=== PATIENT | female | born 1950 | race Caucasian/White ===

== ENCOUNTER 2016-09-13 08:47 | Observation (INO) | payer MEDICARE, OTHER ==
[2016-09-13] MEDS ORDERED: PROMETHAZINE HCL 12.5 MG in DEXTROSE 5 % IN WATER 50 ML IV ONE ×2 (09:04)
[2016-09-13 09:33] LABS: Hematocrit 47.7 % (37.0-47.0); Hemoglobin 15.6 gm/dL (12.5-16.0); Mean Cell Volume 92.4 fl (78-100); Mean Corpuscular Hemoglobin 30.2 pg (27-31); Mean Corpuscular Hgb Conc 32.7 g/dl (32-36); Mean Platelet Volume 10.6 fl (6.0-9.5); Neutrophil # 6.2 K/mm3 (1.3-6.0); Neutrophil % 67.2 % (42-75.0); Platelet Count 327 K/mm3 (150-450); Red Blood Count 5.16 M/mm3 (4.2-5.4); Red Cell Distribution Width 13.2 % (11.5-14.0); White Blood Count 9.3 K/mm3 (4.0-10.5)
[2016-09-13 10:15] LABS: ALT 19 U/L (19-67); AST 16 U/L (0-48); Albumin * 3.7 gm/dl (3.4-5.0); Alkaline Phosphatase * 132 U/L (50-170); Anion Gap 12.9 mmol/L (6.8-13.8); BUN/Creatinine Ratio 9.8 (9.0-21.6); Bilirubin, Total 0.2 mg/dL (0.0-1.1); Blood Urea Nitrogen 8 mg/dL (3-23); Ca. Corrected For Albumin 9.6 mg/dL (8.4-10.2); Calcium * 9.7 mg/dL (7.9-10.9); Chloride 103 mmol/L (97-106); Glucose * 96 mg/dL (70-110); Potassium 3.9 mmol/L (3.4-4.6); Sodium 139 mmol/L (132-142); Total Protein 7.7 gm/dL (6.2-8.2); Troponin I Less than 0.017 ng/ml (0.00-0.10)
[2016-09-13 10:29] LABS: Urine Bilirubin Negative (NEGATIVE); Urine Ketone Negative (NEGATIVE); Urine Protein Negative (NEGATIVE); Urine Urobilinogen Normal (NORMAL)
[2016-09-13 10:38] LABS: Urine Appearance Clear; Urine Bacteria 2+; Urine Blood 10 /ul (NEGATIVE); Urine Color Yellow; Urine Nitrite Positive (NEGATIVE); Urine RBC 0-5 /hpf (0-5)
--- NOTE | 2016-09-13 12:26 | ERNOTE ---
Dizziness ER Record Date of Service: 09/13/16 Presenting Symptoms: dizziness Time Seen by Provider: 09/13/16 08:57 Source: patient Exam Limitations: no limitations Immunizations: IMMUNIZATION HX Immunizations Up to Date Yes Allergies/Adverse Reactions: Allergies Allergy/AdvReac Type Severity Reaction Status Date / Time sulfamethoxazole AdvReac Verified 09/13/16 09:03 [From Bactrim] trimethoprim [From Bactrim] AdvReac Verified 09/13/16 09:03 Home Medications: HOME MEDICATIONS Metoprolol Succinate 25 mg PO DAILY 11/19/15 [Last Taken Unknown] Paroxetine HCl [Paxil] 40 mg PO DAILY 11/19/15 [Last Taken Unknown] Simvastatin [Zocor] 20 mg PO HS 11/19/15 [Last Taken Unknown] amLODIPine BESYLATE [Norvasc] 10 mg PO DAILY 11/19/15 [Last Taken Unknown] - History of Present Illness Narrative: Patient presents to the ED for an episode this morning of feeling like things were waving in front of her. She has been fine with awakening then began to feel off balance and like things were moving or swimming in front of her. No fever. No head injury. SHe felt like she was going to pass out. She couldn/t move because this would make the Sx much worse. She nearly vomited with this. No clear vertigo but a sense of motion. She relates her Sx are improved but not gone. Has not seen anyone else for this. No JAMES. Timing and Duration: sudden onset, better Worse/persistent since:: better Noted on awakening:: No Severity: max: severe Severity: currently: mild Associated Symptoms: Present: nausea. Absent: hearing loss, ringing/roaring in ear, ear pain, vomiting, sense of confusion Sense of movement: Present: vague Decreased ability to stand/walk:: Present: off balance. Absent: weak Usually:: Present: walks w/o assistance Modifying Factors - (Improves): Reports: other - rest Modifying Factors - (Worsens): Reports: other - movement Review of Systems - Review of Systems Constitutional: Absent: fever EYE: Absent: double vision, vision changes ENT: Present: no symptoms reported Respiratory: Absent: shortness of breath Cardiology: Present: other - frequent heart burn. Absent: chest pain Gastrointestinal/Abdominal: Absent: abdominal pain Genitourinary: Absent: dysuria All Other Systems: All systems neg except as marked - Patient's Past Medical History Patient History - Medical: Anxiety, Chronic Pain Patient History - Cardiac/Respiratory: Hypertension, Hyperlipidemia Patient History - Cancer: No Hx of Cancer Patient History - Surgical Procedures: Back Surgery, , Other Patient History - Other: None - Family History Mother Family History - Medical: - Social History Living Situations: significant other Abuse History: No History of abuse Psych History: Hx of Anxiety Smoking Status: Current every day smoker Have you smoked in the past 12 months: Yes Alcohol Use: none Drug Use: none - Immunizations Immunizations Up to Date: Yes Physical Exam - Physical Exam General Appearance: Present: alert, no apparent distress Eye Exam: Normal inspection: bilateral, PERRL: bilateral, EOMI: bilateral Ears, Nose, Throat: Present: normal ENT inspection Neck: Present: normal inspection Respiratory: Present: no respiratory distress, normal breath sounds, no accessory muscle use, lungs clear Cardiovascular/Chest: Present: regular rate, rhythm Gastrointestinal/Abdominal: Present: normal bowel sounds, nontender, nondistended, soft. 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 FInver to nose wnl Skin Exam: Absent: skin rash ED Progress - Results and Orders Patient's Lab Results:: I have reviewed the patient's lab results. - Vital Signs Patient's Vital Signs:: I have reviewed the patient's vital signs. Vital Signs: Vital Signs 09/13/16 09/13/16 09/13/16 08:58 09:03 09:47 Temperature 35.6 C L Pulse Rate 82 78 69 Respiratory 15 18 Rate Blood Pressure 158/71 O2 Sat by Pulse 97 95 Oximetry 09/13/16 09/13/16 10:29 10:45 Temperature Pulse Rate 71 68 Respiratory 22 H 25 H Rate Blood Pressure 161/77 145/65 O2 Sat by Pulse 94 94 Oximetry - EKG EKG: NSR EKG read: Interp. by me EKG Comments: Rate 66. Non-specific ST/T wave changes, no STEMI - X-Ray X-Ray #1 X-Ray: chest Interpretation: Reviewed by me X-ray Comments: I reviewed official radiology report - CT/Ultrasound CT/Ultrasound Narrative: reviewed Head CT radiology report - Progress/Reassessment Chief Complaint: Dizziness Progress:: Improved Progress Note-Subjective: 09/13/16 12:24 Sx free at re-check. I discussd the case with Dr Fairchild irrigation pump installer for Neurology. NIH-0. He reviewed the Head CT and felt the patient should be admitted for stroke work-up. D/W Dr Veras for Dr Thao who will admit for MRI and stroke w/u. Patient not a tPA candidate, Sx resolved and NIH-0. Departure Clinical Impression: Lightheadedness, Abnormal head CT, UTI (urinary tract infection) - Departure Disposition: [facility] Referrals: Sunshine Thao MD [Primary Care Provider] -
[2016-09-13] MEDS ORDERED: CIPROFLOXACIN HCL 500 MG TABLET PO SCH (17:00)
--- NOTE | 2016-09-13 17:01 | HP ---
Chief Complaint - Chief Complaint Date of Service: 09/13/16 Time of Service: 17:01 Chief Complaint: Dizziness History of Present Illness: Laney is a 66 yo male that presents to the [facility] ER today with reports of dizziness. Denies vertigo or syncope. She reports she felt fine yesterday and upon awakening this morning. She got up to the bathroom and went back to lay down in bed and she became severely dizzy. She denies any recent changes to health. Episode resolved but she has had several others throughout the morning that nearly caused her to fall. Due to continued episodes she presented to the [facility] ER. Head CT was performed which showed possible evidence of CVA. Dr. Fairchild with neurology was called and recommended working up as potential acute stroke. She denies difficulty speaking or swallowing. No motor or sensory change. She does not appreciate anything that precipitates symptoms. Change in position, head turning, or movement does not seem to bother it. Denies headache, vision change, ear pain, sore throat, or any other sinus symptoms. No shortness of breath or chest pain. In the ER the UA was suspicious for UTI but she denies frequency, urgency, or dysuria. - Patient's Past Medical History Patient History - Medical: Anxiety, Chronic Pain Patient History - Cardiac/Respiratory: Hypertension, Hyperlipidemia Patient History - Cancer: No Hx of Cancer Patient History - Surgical Procedures: Back Surgery, Colonoscopy, , Tubal Ligation Patient History - Other: None - Family History Mother Family History - Medical: Family History - Cancer: Colon Father Family History - Medical: Family History - Cardiac/Respiratory: Myocardial Infarction Sister Family History - Cardiac/Respiratory: Hypertension Grandmother-Paternal Family History - Cardiac/Respiratory: Myocardial Infarction Grandfather-Paternal Family History - Cardiac/Respiratory: Myocardial Infarction - Social History Living Situations: significant other Abuse History: No History of abuse Psych History: Hx of Anxiety Smoking Status: Current every day smoker Have you smoked in the past 12 months: Yes Alcohol Use: none Drug Use: none - Immunizations Immunizations Up to Date: Yes Review Of Systems (GEN) - Review of Systems Generalized/Overall Review: Absent: Weakness, Chills, Fever EENTM: Absent: Eye Pain, Blurred Vision, Double Vision, Ear Pain, Ear Discharge , Nose Pain, Nose Congestion, Throat Pain, Throat Swelling, Mouth Pain Respiratory: Absent: Cough, Shortness of Breath Cardiac: Absent: Chest Pain, Edema, Palpitations, Syncope Abdominal: Present: Nausea. Absent: Abdominal Pain, Constipation, Diarrhea Genitourinary: Present: No Symptoms Reported Neurological: Present: Other - Dizziness. Absent: Headache, Anxiety, Depressed , Emotional Problems, Numbness, Parasthesia, Seizure, Tingling, Tremors, Weakness Skin: Present: No Symptoms Reported Immunizations: IMMUNIZATION HX Immunizations Up to Date Yes Allergies/Adverse Reactions: Allergies Allergy/AdvReac Type Severity Reaction Status Date / Time sulfamethoxazole AdvReac Verified 09/13/16 09:03 [From Bactrim] trimethoprim [From Bactrim] AdvReac Verified 09/13/16 09:03 Home Medications: HOME MEDICATIONS Metoprolol Succinate 25 mg PO DAILY 11/19/15 [Last Taken Unknown] Paroxetine HCl [Paxil] 40 mg PO DAILY 11/19/15 [Last Taken Unknown] Simvastatin [Zocor] 20 mg PO HS 11/19/15 [Last Taken Unknown] amLODIPine BESYLATE [Norvasc] 10 mg PO DAILY 11/19/15 [Last Taken Unknown] Aspirin [Aspirin Enteric Coated] 325 mg PO DAILY #30 tablet. 09/13/16 [Last Taken Unknown] Ciprofloxacin HCl [Cipro] 500 mg PO BID@0500,1700 #10 tablet 09/13/16 [Last Taken Unknown] Exam - Exam Vital Signs: Vital Signs - Last Taken Temp 36.8 C 09/13/16 15:38 Pulse 79 09/13/16 15:38 Resp 18 09/13/16 15:38 BP 140/62 09/13/16 15:38 Pulse Ox 96 09/13/16 15:38 Constitutional: Present: Alert, Oriented x3, Cooperative ENT Exam: Present: hearing grossly normal Eye Exam: bilateral eye: normal inspection Neck: Present: normal inspection Respiratory: Present: chest non-tender, lungs clear, normal breath sounds Cardiovascular/Chest: Present: regular rate, rhythm, no murmur Peripheral Pulses: carotid (R): 2+, carotid (L): 2+, radial (R): 2+, radial (L) : 2+ Abdomen: Present: Normal bowel sounds, soft, nontender, nondistended, no rebound tenderness Skin Exam: Present: normal color, warm/dry, no cyanosis 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, no motor/sensory deficits, alert , normal mood/affect, oriented x 3, other - Positive Silvia-Hallpike to right Appearance: Present: appropriate appearance, appropriate insight Eye contact: Present: cooperative, good eye contact, normal speech Thoughts: Present: normal thought pattern, no apparent hallucination Diagnostic Studies: Laboratory Results WBC 9.3 K/mm3 (4.0-10.5) 09/13/16 09:20 RBC 5.16 M/mm3 (4.2-5.4) 09/13/16 09:20 Hgb 15.6 gm/dL (12.5-16.0) 09/13/16 09:20 Hct 47.7 % (37.0-47.0) H 09/13/16 09:20 MCV 92.4 fl (78-100) 09/13/16 09:20 MCH 30.2 pg (27-31) 09/13/16 09:20 MCHC 32.7 g/dl (32-36) 09/13/16 09:20 RDW 13.2 % (11.5-14.0) 09/13/16 09:20 Plt Count 327 K/mm3 (150-450) 09/13/16 09:20 MPV 10.6 fl (6.0-9.5) H 09/13/16 09:20 Immature Gran % (Auto) 0.30 % (0.001-0.429) 09/13/16 09:20 Immature Gran # (Auto) 0.03 K/mm3 (0.000-0.0310) 09/13/16 09:20 Neutrophils % 67.2 % (42-75.0) 09/13/16 09:20 Lymphocytes % 20.8 % (20-51) 09/13/16 09:20 Monocytes % 5.0 % (0.0-9) 09/13/16 09:20 Eosinophils % 5.1 % (0.0-3.0) H 09/13/16 09:20 Basophils % 1.6 % (0.0-1.0) H 09/13/16 09:20 Nucleated RBC % 0.0 k/mm3 (0-1) 09/13/16 09:20 Neutrophils # 6.2 K/mm3 (1.3-6.0) H 09/13/16 09:20 Lymphocytes # 1.9 k/mm3 (1.5-3.5) 09/13/16 09:20 Monocytes # 0.5 k/mm3 (0.0-1.0) 09/13/16 09:20 Eosinophils # 0.5 k/mm3 (0.0-0.7) 09/13/16 09:20 Absolute Basophils 0.2 k/mm3 (0.0-0.1) H 09/13/16 09:20 Sodium 139 mmol/L (132-142) 09/13/16 09:20 Plasma Sodium 139 mmol/L (130-142) 09/13/16 09:20 Potassium 3.9 mmol/L (3.4-4.6) 09/13/16 09:20 Chloride 103 mmol/L (97-106) 09/13/16 09:20 Carbon Dioxide 27.0 mmol/L (24-32.6) 09/13/16 09:20 Anion Gap 12.9 mmol/L (6.8-13.8) 09/13/16 09:20 BUN 8 mg/dL (3-23) 09/13/16 09:20 Creatinine 0.82 mg/dL (0.4-1.4) 09/13/16 09:20 Est GFR (Non-Af Amer) 74 mL/min (60-130) 09/13/16 09:20 BUN/Creatinine Ratio 9.8 (9.0-21.6) 09/13/16 09:20 Random Glucose 96 mg/dL (70-110) 09/13/16 09:20 Calcium 9.7 mg/dL (7.9-10.9) 09/13/16 09:20 Calcium Adj for Albumin 9.6 mg/dL (8.4-10.2) 09/13/16 09:20 Total Bilirubin 0.2 mg/dL (0.0-1.1) 09/13/16 09:20 AST 16 U/L (0-48) 09/13/16 09:20 ALT 19 U/L (19-67) 09/13/16 09:20 Alkaline Phosphatase 132 U/L (50-170) 09/13/16 09:20 Troponin I Less than 0.017 ng/ml (0.00-0.10) 09/13/16 09:20 Total Protein 7.7 gm/dL (6.2-8.2) 09/13/16 09:20 Albumin 3.7 gm/dl (3.4-5.0) 09/13/16 09:20 Urine Color Yellow 09/13/16 10:17 Urine Appearance Clear 09/13/16 10:17 Urine pH 6.0 pH (5.0-7.0) 09/13/16 10:17 Ur Specific [place] 1.020 SP.GR. (1.005-1.010) 09/13/16 10:17 Urine Protein Negative mg/dL (NEGATIVE) 09/13/16 10:17 Urine Glucose (UA) Negative mg/dL (NEGATIVE) 09/13/16 10:17 Urine Ketones Negative mg/dL (NEGATIVE) 09/13/16 10:17 Urine Blood 10 /ul (NEGATIVE) H 09/13/16 10:17 Urine Nitrate Positive (NEGATIVE) H 09/13/16 10:17 Urine Bilirubin Negative mg/dl (NEGATIVE) 09/13/16 10:17 Urine Urobilinogen Normal EU/dl (NORMAL) 09/13/16 10:17 Ur Leukocyte Esterase 25 /ul (NEGATIVE) H 09/13/16 10:17 Urine RBC 0-5 /hpf (0-5) 09/13/16 10:17 Urine WBC 5-10 /hpf (0-5) H 09/13/16 10:17 Ur Epithelial Cells 0-5 /hpf (0-5) 09/13/16 10:17 Urine Bacteria 2+ (NONE) H 09/13/16 10:17 Urine Culture Comments Culture to follow 09/13/16 10:17 Assessment/Plan - Assessment/Plan (1) Benign paroxysmal positional vertigo Assessment: Laney was admitted from the ER with dizziness and abnormal head CT. She was admitted to observation for further evaluation of potential CVA. She underwent Brain MRI and echocardiogram once on the floor. At the time of my evaluation the brain MRI results were back showing no acute stroke. Potential lucunar infarct vs chronic microvascular ischemic change in frontal lobe. This is not located in a region that I suspect would cause her symptoms. On exam she had a positive Silvia-Hallpike to the right that reproduced her exact symptoms. Discussed with her the options to stay overnight and see physical therapy in the morning vs treating BPPV as outpatient. She elected to treat this outpatient and will be given Epleys handout (right). She declines meclizine. She will be discharged to home. See discharge summary for further details. Will follow up with Dr. Thao in a week and may need outpatient PT if her home exercises are not working. She will call the clinic if symptoms worsen and she needs PT sooner. Problem: Acute Qualifiers: Laterality: right Qualified Code(s): H81.11 - Benign paroxysmal vertigo, right ear (2) UTI (urinary tract infection) Assessment: UA suspicious for UTI and may sometimes cause dizziness. Will treat with Cipro 500mg BID x 5 days. Problem: Acute Qualifiers: Urinary tract infection type: acute cystitis Hematuria presence: without hematuria Qualified Code(s): N30.00 - Acute cystitis without hematuria (3) Abnormal brain MRI Assessment: Brain MRI showed potential lacunar vs chronic microvascular ischemic change. She will take an Aspirin 325mg daily and continue simvastatin daily for now until she sees neurology who I will refer her to for evaluation of brain MRI abnormalities. Problem: Acute
--- NOTE | 2016-09-13 17:09 | DS ---
(1) Benign paroxysmal positional vertigo Diagnosis(s): Laney is a 66 yo female who was admitted for intractable dizziness and vertigo. Head CT showed possibility of stroke. She was admitted to observation and a brain MRI was obtained which showed no acute stroke. Silvia- Hallpike was positive and suggest BPPV. She was given exercises for BPPV and she elects to work on these at home. If not improved she will call and will get a referral to PT for vestibular therapy. Problem: Acute Qualifiers: Laterality: right Qualified Code(s): H81.11 - Benign paroxysmal vertigo, right ear (2) Abnormal brain MRI Diagnosis(s): Evidence of frontal lacunar infarct on brain MRI. Not likely a cause to her current symptoms but will refer to neurology for evaluation and treatment recommendations. Problem: Acute (3) UTI (urinary tract infection) Diagnosis(s): UA suspicious for UTI. Will treat with Cipro 500mg BID x 5 days. Urine culture pending. Problem: Acute Qualifiers: Urinary tract infection type: acute cystitis Hematuria presence: without hematuria Qualified Code(s): N30.00 - Acute cystitis without hematuria Procedures Performed: none Discharge Disposition: Home self care Disposition: Home self-care Condition: Good Discharge Activity: Activity as tolerated Discharge Diet: General/regular food Referrals: Sunshine Thao MD [Primary Care Provider] - One Week Kezia Fairchild MD [Staff Physician] - (Next available, give patient CD copy of Brain MRI and Head CT if going to [facility].) Additional Patient Instructions (free text): Given Modified Cielo maneuver (right). Perform this maneuver three times a day every day until symptoms are no longer present. If still present when following up with Dr. Thao recommend referral to Physical Therapy for Vestibular Therapy. Given Cipro for urinary tract infection. Recommend taking Aspirin 325mg daily for possible history of stroke, at least until discussed with neurology. Prescriptions (Any new or edited meds): Aspirin [Aspirin Enteric Coated] 325 mg PO DAILY #30 tablet. Ciprofloxacin HCl [Cipro] 500 mg PO BID@0500,1700 #10 tablet Complete Home Medications List: Complete Home Medication List: Metoprolol Succinate 25 mg PO DAILY 11/19/15 Paroxetine HCl [Paxil] 40 mg PO DAILY 11/19/15 Simvastatin [Zocor] 20 mg PO HS 11/19/15 amLODIPine BESYLATE [Norvasc] 10 mg PO DAILY 11/19/15 Aspirin [Aspirin Enteric Coated] 325 mg PO DAILY #30 tablet. 09/13/16 Ciprofloxacin HCl [Cipro] 500 mg PO BID@0500,1700 #10 tablet 09/13/16
[2016-09-13 17:44] VITALS: BP 123/60
[2016-09-13] MEDS ORDERED: FLU VACC QS2016-17 36MOS UP/PF 60 MCG/0.5 ML DISP.SYRIN IM ONE (18:00)
[2016-09-13] MEDS ORDERED: SIMVASTATIN 20 MG TABLET PO SCH (21:00)
[2016-09-14] MEDS ORDERED: amLODIPine BESYLATE 10 MG TABLET PO SCH (09:00)
[2016-09-14] MEDS ORDERED: PARoxetine HCL 20 MG TABLET PO SCH (09:00)
[2016-09-14] MEDS ORDERED: METOPROLOL SUCCINATE 25 MG TABLET.SA PO SCH (09:00)
--- NOTE | 2016-09-14 09:13 | ECHO ---
This report is available in the EMR
== END 2016-09-13 18:45 | disposition home or self-care (01) ==
LOC: ER 08:47 → MS 12:19
PROVIDERS: ADMIT Family Medicine; ATTEND Family Medicine
DX: H81.11 Benign paroxysmal vertigo, right ear (principal); N39.0 Urinary tract infection, site not specified; Z72.0 Tobacco use; R90.89 Other abnormal findings on diagnostic imaging of central nervous system; Z23 Encounter for immunization
CPT/HCPCS: 36415; 70450; 70553; 71020; 80053; 81001; 84484; 85025; 87086; 90686; 93005; 93306; 96365; 99284; G0008

== ENCOUNTER 2016-11-11 09:58 | Inpatient (IN) | payer MEDICARE, OTHER ==
[2016-11-11 10:24] LABS: Hematocrit 44.3 % (37.0-47.0); Hemoglobin 14.7 gm/dL (12.5-16.0); Mean Cell Volume 89.3 fl (78-100); Mean Corpuscular Hemoglobin 29.6 pg (27-31); Mean Corpuscular Hgb Conc 33.2 g/dl (32-36); Mean Platelet Volume 9.8 fl (6.0-9.5); Neutrophil # 8.4 K/mm3 (1.3-6.0); Neutrophil % 74.6 % (42-75.0); Platelet Count 367 K/mm3 (150-450); Red Blood Count 4.96 M/mm3 (4.2-5.4); Red Cell Distribution Width 13.2 % (11.5-14.0); White Blood Count 11.3 K/mm3 (4.0-10.5)
[2016-11-11 10:37] LABS: Albumin * 3.4 gm/dl (3.4-5.0); Anion Gap 12.7 mmol/L (6.8-13.8); BUN/Creatinine Ratio 13.9 (9.0-21.6); Bilirubin, Total 0.2 mg/dL (0.0-1.1); Ca. Corrected For Albumin 9.3 mg/dL (8.4-10.2); Calcium * 9.1 mg/dL (7.9-10.9); Carbon Dioxide 27.7 mmol/L (24-32.6); Potassium 3.4 mmol/L (3.4-4.6); Total Protein 7.4 gm/dL (6.2-8.2)
[2016-11-11] MEDS ORDERED: ONDANSETRON 4 MG TAB.RAPDIS ONE (10:46)
[2016-11-11] MEDS ORDERED: ONDANSETRON 4 MG TAB.RAPDIS PO ONE (11:10)
[2016-11-11] MEDS ORDERED: DIATRIZOATE MEGLU/DIATRIZO SOD 30 ML BTL PO ONE (11:13)
[2016-11-11] MEDS ORDERED: MORPHINE SULFATE 4 MG/ML SYRG ONE ×4 (11:13→14:22)
[2016-11-11] MEDS ORDERED: MORPHINE SULFATE 4 MG/ML SYRG IV ONE ×3 (11:13→14:18)
[2016-11-11] MEDS ORDERED: ONDANSETRON HCL/PF 2 MG/ML VIAL ONE ×2 (11:13→11:15)
[2016-11-11] MEDS ORDERED: ONDANSETRON HCL/PF 2 MG/ML VIAL IV ONE (11:13)
[2016-11-11] MEDS ORDERED: DIATRIZOATE MEGLU/DIATRIZO SOD 30 ML BTL ONE (11:19)
--- NOTE | 2016-11-11 11:20 | ERNOTE ---
Abdominal HPI - General Chief Complaint: Abdominal Pain Time Seen by Provider: 11/11/16 10:59 Source: patient Exam Limitations: no limitations - Immun/Allergies/Home Medications Immunizatons: IMMUNIZATION HX Immunizations Up to Date Yes History of Influenza Vaccine Yes Hx Pneumococcal Vaccination No Allergies/Adverse Reactions: Allergies sulfamethoxazole [From Bactrim] Adverse Reaction (Verified 11/11/16 10:09) trimethoprim [From Bactrim] Adverse Reaction (Verified 11/11/16 10:09) Home Medications: HOME MEDICATIONS RX: Metoprolol Succinate 25 mg PO DAILY 11/19/15 [Last Taken Unknown] RX: PARoxetine HCL [Paxil] 40 mg PO DAILY 11/19/15 [Last Taken Unknown] RX: Simvastatin [Zocor] 20 mg PO HS 11/19/15 [Last Taken Unknown] RX: amLODIPine BESYLATE [Norvasc] 10 mg PO DAILY 11/19/15 [Last Taken Unknown] RX: Aspirin [Aspirin Enteric Coated] 325 mg PO DAILY #30 tablet. 09/13/16 [ Last Taken Unknown] Clopidogrel Bisulfate [Plavix] 75 mg PO DAILY 11/11/16 [Last Taken Unknown] - History of Present Illness Narrative: Patient had right lower quadrant pain for 3-4 days that resolved about 4 days ago. This morning she started to have pain again around 05:00 that is a lot more severe , started with vomiting and diarrhea while in the ER Date (Duration): 11/11/16 Time (Timing): 05:00 Review of Systems - Review of Systems Constitutional: Present: recent illness. Absent: fever, chills ENT: Absent: nasal drainage, sore throat Respiratory: Absent: shortness of breath, cough Cardiology: Absent: chest pain Gastrointestinal/Abdominal: Present: See HPI, nausea, vomiting, diarrhea, abdominal pain Genitourinary: Present: no symptoms reported Musculoskeletal: Present: no symptoms reported Skin: Absent: rash Neurological: Absent: headache - Patient's Past Medical History Patient History - Medical: Anxiety Patient History - Cardiac/Respiratory: Hypertension, Hyperlipidemia, TIA Patient History - Cancer: No Hx of Cancer Patient History - Surgical Procedures: Back Surgery, Colonoscopy, , Tubal Ligation Patient History - Other: None LMP (females 10-50): Menopausal - Family History Mother Family History - Medical: Family History - Cancer: Colon Father Family History - Medical: Family History - Cardiac/Respiratory: Myocardial Infarction Sister Family History - Cardiac/Respiratory: Hypertension Grandmother-Paternal Family History - Cardiac/Respiratory: Myocardial Infarction Grandfather-Paternal Family History - Cardiac/Respiratory: Myocardial Infarction - Social History Living Situations: home Abuse History: No History of abuse Psych History: Hx of Anxiety Smoking Status: Current every day smoker Have you smoked in the past 12 months: Yes Alcohol Use: none Drug Use: none - Immunizations Immunizations Up to Date: Yes Hx Pneumococcal Vaccination: No History of Influenza Vaccine: Yes Physical Exam - Physical Exam General Appearance: Present: wd/wn, alert, moderate distress Ears, Nose, Throat: Present: normal pharynx Respiratory: Present: no respiratory distress, no accessory muscle use, lungs clear, decreased breath sounds Cardiovascular/Chest: Present: regular rate, rhythm, no murmur Gastrointestinal/Abdominal: Present: normal bowel sounds, nondistended, tenderness - right side of abdomen, max in RLQ, guarding, McBurney sign. Absent : Floyd sign, Psoas sign Extremity Exam: Present: no edema Neurological Exam: Present: alert, oriented, normal mood/affect Skin Exam: Present: normal color, pallor ED Progress - Results and Orders Patient's Lab Results:: I have reviewed the patient's lab results. - Vital Signs Patient's Vital Signs:: I have reviewed the patient's vital signs. Vital Signs: Vital Signs 11/11/16 10:05 Temperature 36.5 C Pulse Rate 72 Respiratory 16 Rate Blood Pressure 130/60 O2 Sat by Pulse 99 Oximetry - X-Ray X-Ray #1 X-Ray: abdomen - non specific bowel gas pattern Interpretation: Reviewed by me - CT/Ultrasound CT/Ultrasound Narrative: CT abdomen: acute appendicitis with surrounding inflammatory changes, no perforation - Progress/Reassessment Chief Complaint: Abdominal Pain Progress Note-Subjective: 11/11/16 11:43 minimal pain relieve 11/11/16 12:27 comfortable, tolerating po, explained test results and plan 11/11/16 14:[address] with radiologist 11/11/16 14:[address] Richardson (via OR nurse) will see patient when finished with his case 11/11/16 14:19 discussed results with patient and family, requesting more pain medication 11/11/16 16:[address] Richardson, would like patient admitted to medicine due to comorbidities 11/11/16 16:17 discussed with Abby Bennett, okay to admit to medicine Departure - Departure Clinical Impression: Acute appendicitis Qualifiers: Acute appendicitis type: unspecified acute appendicitis type Qualified Code(s) : K35.80 - Unspecified acute appendicitis Disposition: [facility] Condition: Good
[2016-11-11] MEDS ORDERED: NORMAL SALINE 1,000 ML IV ONE ×3 (12:28→19:55)
[2016-11-11] MEDS ORDERED: metroNIDAZOLE/SODIUM CHLORIDE 500 MG/100 ML BAG IV SCH (15:45)
[2016-11-11] MEDS ORDERED: LEVOFLOXACIN/D5W 750 MG/150 ML BAG IV SCH (15:45)
[2016-11-11 16:32] LABS: Urine Bilirubin Negative (NEGATIVE); Urine Ketone Negative (NEGATIVE); Urine Nitrite Negative (NEGATIVE); Urine Protein Negative (NEGATIVE); Urine Specific Gravity <=1.005 SP.GR. (1.005-1.010); Urine Urobilinogen Normal (NORMAL); Urine pH 5.5 pH (5.0-7.0)
[2016-11-11 16:41] LABS: Urine Appearance Clear; Urine Bacteria TRACE; Urine Blood 10 /ul (NEGATIVE); Urine Color Yellow; Urine RBC 0-5 /hpf (0-5); Urine WBC 0-5 /hpf (0-5)
[2016-11-11] MEDS ORDERED: PROMETHAZINE HCL 5 MG in DEXTROSE 5 % IN WATER 50 ML IV PRN ×2 (16:43)
[2016-11-11] MEDS ORDERED: ONDANSETRON HCL/PF 2 MG/ML VIAL IV PRN (16:43)
--- NOTE | 2016-11-11 16:52 | CONS ---
[facility] - General Date of Service: 11/11/16 Narrative: Pt presents to ER with c/o of RLQ abdominal pain. She had an episode, not nearly as severe, about a week ago that resolved spontaneously. She woke up this morning and the pain had returned but considerably more severe. She has a slightly elevated WBC and CT of the abdomen shows changes c/w acute appendicitis. Noted was considerable periappendiceal inflammatory changes. Source: patient, RN/MD, old records - History of Present Illness Severity: severe Allergies/Adverse Reactions: Allergies sulfamethoxazole [From Bactrim] Adverse Reaction (Verified 11/11/16 10:09) trimethoprim [From Bactrim] Adverse Reaction (Verified 11/11/16 10:09) Home Medications: Home Medications Medication Instructions Recorded Last Taken Metoprolol Succinate 25 mg PO DAILY 11/19/15 Unknown PARoxetine HCL [Paxil] 40 mg PO DAILY 11/19/15 Unknown Simvastatin [Zocor] 20 mg PO HS 11/19/15 Unknown amLODIPine BESYLATE [Norvasc] 10 mg PO DAILY 11/19/15 Unknown Clopidogrel Bisulfate [Plavix] 75 mg PO DAILY 11/11/16 Unknown - Patient's Past Medical History Patient History - Medical: Anxiety Patient History - Cardiac/Respiratory: Hypertension, Hyperlipidemia, TIA - Was started on plavix 09/2016 for suspected TIA Patient History - Cancer: No Hx of Cancer Patient History - Surgical Procedures: Back Surgery, Colonoscopy, , Tubal Ligation Patient History - Other: None LMP (females 10-50): Menopausal - Family History Mother Family History - Medical: Family History - Cancer: Colon Father Family History - Medical: Family History - Cardiac/Respiratory: Myocardial Infarction Sister Family History - Cardiac/Respiratory: Hypertension Grandmother-Paternal Family History - Cardiac/Respiratory: Myocardial Infarction Grandfather-Paternal Family History - Cardiac/Respiratory: Myocardial Infarction - Social History Living Situations: home Abuse History: No History of abuse Psych History: Hx of Anxiety Smoking Status: Current every day smoker Have you smoked in the past 12 months: Yes Alcohol Use: none Drug Use: none - Immunizations Immunizations Up to Date: Yes Hx Pneumococcal Vaccination: No History of Influenza Vaccine: Yes Procedures EXCISION OF RECTUM, ENDO, DIAGN (11/30/15) Medications - Medications Current Medications: Current Medications Levofloxacin/Dextrose (Levaquin) 750 mg in 150 mls @ 100 mls/hr IV Q24H PABLITO Stop: 12/11/16 15:46 Last Admin: 11/11/16 15:42 Dose: 100 mls/hr Physical Examination - Exam Vital Signs: Vital Signs - Last Taken Temp 36.5 C 11/11/16 10:05 Pulse 94 11/11/16 15:33 Resp 16 11/11/16 15:33 BP 131/65 11/11/16 15:33 Pulse Ox 99 11/11/16 15:33 O2 Oxygen Delivery Method Room Air Constitutional: Present: Alert, Oriented x3, Cooperative, Moderate distress ENT Exam: Present: normal ENT inspection Neck: Present: normal inspection, trachea midline Respiratory: Present: lungs clear, normal breath sounds Cardiovascular/Chest: Present: regular rate, rhythm Abdomen: Present: tender, guarding Extremity: Present: normal inspection Skin Exam: Present: normal color, warm/dry Neurologic: Present: no motor/sensory deficits - Results and Findings: Lab/Microbiology results last 24 hrs: Abnormal/Pending Laboratory Last 24 HRS 11/11/16 11/11/16 11/11/16 15:49 10:20 10:13 WBC 11.3 H MPV 9.8 H Lymphocytes % 16.2 L Neutrophils # 8.4 H Est GFR (Non-Af Amer) 58 L D Urine Blood 10 H Ur Epithelial Cells >25 H - Assessments/Findings (1) Acute appendicitis Diagnosis(s): A: Acute appendicitis P: Recommend lap appy. The options, risks, and benefits were reviewed fully. She is at increased risk of bleeding due to plavix therapy. I think delay in operation presents far greater risks. She seems to understand, asks appropriate questions and desires to proceed. Problem: Acute Qualifiers: Acute appendicitis type: unspecified acute appendicitis type Qualified Code (s): K35.80 - Unspecified acute appendicitis
[2016-11-11] MEDS: MORPHINE SULFATE 2 MG/ML DISP.SYRIN IV PRN (18:27)
[2016-11-11] MEDS ORDERED: BUPIVACAINE HCL/EPINEPHRINE 50 ML VIAL IJ ONE (20:15)
[2016-11-11] MEDS ORDERED: RINGERS SOLUTION,LACTATED 1,000 ML IV ONE ×2 (20:50→21:24)
[2016-11-11] MEDS: metroNIDAZOLE/SODIUM CHLORIDE 500 MG/100 ML BAG IV SCH (22:48)
--- NOTE | 2016-11-12 00:19 | HP ---
Chief Complaint - Chief Complaint Date of Service: 11/12/16 Time of Service: 00:14 Chief Complaint: 'Abd. Pain'. Source of HPI- Pt; uobtainable due to mechanical intubation, ER provider report, History of Present Illness: Mrs. Blum is a 66-yr-old [place] pt of Dr. Sunshine Thao with a PMH of: Anxiety, HLD, HTN & TIA. History is unobtainable from pt as she is on mechanical ventilation and therefore information is obtained from the ER provider and consultation provider notes. Apparently pt presented to the ED on 11/11 with complaints of RLQ pain that had gone on for 3-4 days but had resolved 4 days earlier.She developed abd pain again on 11/11 and that was accompanied with vomiting and diarrhea. A CT scan of the abdomen was obtained and it showed acute appendicitis. Surgery was consulted and Dr. Luis agreed to admit with the goal of performing an laparoscopic appendectomy. She underwent the procecure on the night of 11/11. However, after the procedure, she required to be monitored closely in the SCU due to inability to overcome the muscle weakness from the use of muscle relaxants during surgery, which could also compromise her airway. She was to remain mechanically intubated during the night with the goal of extubation in am, along with continued ability of spontaneous breathing, and without signs of muscle relaxant weakness. At the time of physical examination, she is alert and in no distress, with muscle strength of 3/5 on upper extremities. Her hospitalization will require a minimum of 2 midnight stay or longer depending on the progress of being weaned off the mechanical intubation. - Patient's Past Medical History Patient History - Medical: Anxiety Patient History - Cardiac/Respiratory: Hypertension, Hyperlipidemia, TIA Patient History - Cancer: No Hx of Cancer Patient History - Surgical Procedures: Back Surgery, Colonoscopy, , Tubal Ligation Patient History - Other: None LMP (females 10-50): Menopausal - Family History Mother Family History - Medical: Family History - Cancer: Colon Father Family History - Medical: Family History - Cardiac/Respiratory: Myocardial Infarction Sister Family History - Cardiac/Respiratory: Hypertension Grandmother-Paternal Family History - Cardiac/Respiratory: Myocardial Infarction Grandfather-Paternal Family History - Medical: Family History - Cardiac/Respiratory: Myocardial Infarction - Social History Living Situations: spouse Abuse History: No History of abuse Psych History: Hx of Anxiety Smoking Status: Current every day smoker Have you smoked in the past 12 months: Yes Alcohol Use: none Drug Use: none - Immunizations Immunizations Up to Date: Yes Hx Pneumococcal Vaccination: No History of Influenza Vaccine: Yes Review Of Systems (GEN) - Review of Systems Additional Comments: ROS unobtainable due as pt remains intubated. Immunizations: IMMUNIZATION HX Immunizations Up to Date Yes History of Influenza Vaccine Yes Hx Pneumococcal Vaccination No Allergies/Adverse Reactions: Allergies Allergy/AdvReac Type Severity Reaction Status Date / Time sulfamethoxazole AdvReac Verified 11/11/16 17:23 [From Bactrim] trimethoprim [From Bactrim] AdvReac Verified 11/11/16 17:23 Home Medications: HOME MEDICATIONS Metoprolol Succinate 25 mg PO DAILY 11/19/15 [Last Taken 11/11/16 07:00] PARoxetine HCL [Paxil] 40 mg PO DAILY 11/19/15 [Last Taken 11/11/16 07:00] Simvastatin [Zocor] 20 mg PO HS 11/19/15 [Last Taken 11/11/16 07:00] amLODIPine BESYLATE [Norvasc] 10 mg PO DAILY 11/19/15 [Last Taken 11/11/16 07:00 ] Aspirin [Aspirin Enteric Coated] 325 mg PO DAILY #30 tablet. 09/13/16 [Last Taken 11/11/16 07:00] Clopidogrel Bisulfate [Plavix] 75 mg PO DAILY 11/11/16 [Last Taken 11/11/16 07: 00] Exam - Exam Vital Signs: Vital Signs - Last Taken Temp 36.9 C 11/11/16 23:25 Pulse 74 11/11/16 23:55 Resp 20 11/11/16 23:55 BP 118/48 11/11/16 23:55 Pulse Ox 95 11/11/16 23:55 Constitutional: Present: Alert, No distress ENT Exam: Present: normal ENT inspection, other - ET tube in place.. Absent: nasal drainage, pharyngeal erythema Eye Exam: bilateral eye: normal inspection, PERRL Neck: Present: non-tender, trachea midline, other Back Exam: Present: normal inspection Breasts: Present: Exam deferred Respiratory: Present: lungs clear, no accessory muscle use, other - On assistance with Mechanical intubation. Cardiovascular/Chest: Present: regular rate, rhythm, no chest tenderness, no edema, no murmur Abdomen: Present: Normal bowel sounds, soft, tender /Rectal: Present: Exam deferred Extremity: Present: normal range of motion, normal inspection, no pedal edema Skin Exam: Present: normal color, warm/dry, no cyanosis Lymphatic: Present: no adenopathy Neurologic: Present: other - Unable to assess Level of orientation, Follows command, GSC score of 14. Muscle strength 3/5 on Upper extremity. Appearance: Present: appropriate appearance Eye contact: Present: cooperative, good eye contact Thoughts: Present: no apparent hallucination, other - Anxious. Diagnostic Studies: Abnormal Lab Results 11/11/16 Range/Units 23:38 pO2 77.0 L (83.0-108.0) mmHg HCO3 18.8 L (21.0-28.0) mmol/L Base Excess -6.2 L (-2.0-3.0) mmol/L ABG pH 7.34 L (7.35-7.45) Laboratory Results WBC 11.3 K/mm3 (4.0-10.5) H 11/11/16 10:13 RBC 4.96 M/mm3 (4.2-5.4) 11/11/16 10:13 Hgb 14.7 gm/dL (12.5-16.0) 11/11/16 10:13 Hct 44.3 % (37.0-47.0) 11/11/16 10:13 MCV 89.3 fl (78-100) 11/11/16 10:13 MCH 29.6 pg (27-31) 11/11/16 10:13 MCHC 33.2 g/dl (32-36) 11/11/16 10:13 RDW 13.2 % (11.5-14.0) 11/11/16 10:13 Plt Count 367 K/mm3 (150-450) 11/11/16 10:13 MPV 9.8 fl (6.0-9.5) H 11/11/16 10:13 Immature Gran % (Auto) 0.30 % (0.001-0.429) 11/11/16 10:13 Immature Gran # (Auto) 0.03 K/mm3 (0.000-0.0310) 11/11/16 10:13 Neutrophils % 74.6 % (42-75.0) 11/11/16 10:13 Lymphocytes % 16.2 % (20-51) L 11/11/16 10:13 Monocytes % 5.9 % (0.0-9) 11/11/16 10:13 Eosinophils % 2.3 % (0.0-3.0) 11/11/16 10:13 Basophils % 0.7 % (0.0-1.0) 11/11/16 10:13 Nucleated RBC % 0.0 k/mm3 (0-1) 11/11/16 10:13 Neutrophils # 8.4 K/mm3 (1.3-6.0) H 11/11/16 10:13 Lymphocytes # 1.8 k/mm3 (1.5-3.5) 11/11/16 10:13 Monocytes # 0.7 k/mm3 (0.0-1.0) 11/11/16 10:13 Eosinophils # 0.3 k/mm3 (0.0-0.7) 11/11/16 10:13 Absolute Basophils 0.1 k/mm3 (0.0-0.1) 11/11/16 10:13 pCO2 35.4 mmHg (32.0-45.0) 11/11/16 23:38 pO2 77.0 mmHg (83.0-108.0) L 11/11/16 23:38 HCO3 18.8 mmol/L (21.0-28.0) L 11/11/16 23:38 Total CO2 19.9 mmol/L (19.0-24.0) 11/11/16 23:38 Base Excess -6.2 mmol/L (-2.0-3.0) L 11/11/16 23:38 ABG pH 7.34 (7.35-7.45) L 11/11/16 23:38 ABG O2 Sat (Measured) 94.8 % (94.0-98.0) 11/11/16 23:38 Sodium 141 mmol/L (132-142) 11/11/16 10:20 Plasma Sodium 141 mmol/L (130-142) 11/11/16 10:20 Potassium 3.4 mmol/L (3.4-4.6) 11/11/16 10:20 Chloride 104 mmol/L (97-106) 11/11/16 10:20 Carbon Dioxide 27.7 mmol/L (24-32.6) 11/11/16 10:20 Anion Gap 12.7 mmol/L (6.8-13.8) 11/11/16 10:20 BUN 14 mg/dL (3-23) D 11/11/16 10:20 Creatinine 1.01 mg/dL (0.4-1.4) 11/11/16 10:20 Est GFR (Non-Af Amer) 58 mL/min (60-130) L D 11/11/16 10:20 BUN/Creatinine Ratio 13.9 (9.0-21.6) 11/11/16 10:20 Random Glucose 108 mg/dL (70-110) 11/11/16 10:20 Calcium 9.1 mg/dL (7.9-10.9) 11/11/16 10:20 Calcium Adj for Albumin 9.3 mg/dL (8.4-10.2) 11/11/16 10:20 Total Bilirubin 0.2 mg/dL (0.0-1.1) 11/11/16 10:20 AST 13 U/L (0-48) 11/11/16 10:20 ALT 20 U/L (19-67) 11/11/16 10:20 Alkaline Phosphatase 125 U/L (50-170) 11/11/16 10:20 Total Protein 7.4 gm/dL (6.2-8.2) 11/11/16 10:20 Albumin 3.4 gm/dl (3.4-5.0) 11/11/16 10:20 Amylase 43 U/L (25-115) 11/11/16 10:20 Lipase 140 U/L (73-393) 11/11/16 10:20 Urine Color Yellow 11/11/16 15:49 Urine Appearance Clear 11/11/16 15:49 Urine pH 5.5 pH (5.0-7.0) 11/11/16 15:49 Ur Specific [place] <=1.005 SP.GR. (1.005-1.010) 11/11/16 15:49 Urine Protein Negative mg/dL (NEGATIVE) 11/11/16 15:49 Urine Glucose (UA) Negative mg/dL (NEGATIVE) 11/11/16 15:49 Urine Ketones Negative mg/dL (NEGATIVE) 11/11/16 15:49 Urine Blood 10 /ul (NEGATIVE) H 11/11/16 15:49 Urine Nitrate Negative (NEGATIVE) 11/11/16 15:49 Urine Bilirubin Negative mg/dl (NEGATIVE) 11/11/16 15:49 Urine Urobilinogen Normal EU/dl (NORMAL) 11/11/16 15:49 Ur Leukocyte Esterase Negative /ul (NEGATIVE) 11/11/16 15:49 Urine RBC 0-5 /hpf (0-5) 11/11/16 15:49 Urine WBC 0-5 /hpf (0-5) 11/11/16 15:49 Ur Epithelial Cells >25 /hpf (0-5) H 11/11/16 15:49 Urine Bacteria Trace (NONE) 11/11/16 15:49 Urine Culture Comments No culture indicated 11/11/16 15:49 Assessment/Plan - Assessment/Plan (1) Weaning from mechanically assisted ventilation not completed Assessment: Pt was unable to be weaned off mechanical ventilation following surgical procedure. She will remain on mechanical ventilation during the night with the goal of extubation in am, along with continued ability of spontaneous breathing , and without signs of muscle relaxant weakness. Will utilize prn Ativan for anxiety and to keep calm till am. Check ABGs in am. Problem: Acute (2) Appendicitis Assessment: Had Appendectomy on 11/11- Surgery following. Combination therapy with Flagyl and Levaquin is sufficient for now and may continue with antibiotics for 3-5 days postoperatively. Problem: Acute (3) laparoscopic appendectomy Assessment: Dr. Richardson will be following- Problem: Acute (4) HTN (hypertension) Problem: Chronic Qualifiers: Hypertension type: essential hypertension Qualified Code(s): I10 - Essential (primary) hypertension (5) HLD (hyperlipidemia) Problem: Chronic
[2016-11-12] MEDS ORDERED: LORazepam 2 MG/ML DISP.SYRIN IV PRN (01:19)
[2016-11-12] MEDS: MORPHINE SULFATE 2 MG/ML DISP.SYRIN IV PRN ×4 (02:53→08:45)
[2016-11-12 05:50] LABS: Hematocrit 36.3 % (37.0-47.0); Hemoglobin 12.2 gm/dL (12.5-16.0); Mean Cell Volume 89.4 fl (78-100); Mean Corpuscular Hgb Conc 33.6 g/dl (32-36); Mean Platelet Volume 10.1 fl (6.0-9.5); Neutrophil # 12.9 K/mm3 (1.3-6.0); Neutrophil % 83.9 % (42-75.0); Platelet Count 283 K/mm3 (150-450); Red Blood Count 4.06 M/mm3 (4.2-5.4); Red Cell Distribution Width 13.2 % (11.5-14.0); White Blood Count 15.3 K/mm3 (4.0-10.5)
[2016-11-12 05:57] LABS: Anion Gap 11.7 mmol/L (6.8-13.8); BUN/Creatinine Ratio 16.1 (9.0-21.6); Calcium * 7.7 mg/dL (7.9-10.9); Carbon Dioxide 24.6 mmol/L (24-32.6); Estimated Creat Clear 50.7; Potassium 3.3 mmol/L (3.4-4.6)
[2016-11-12] MEDS ORDERED: HYDROmorphone HCL 1 MG/ML DISP.SYRIN IV ONE (07:10)
[2016-11-12] MEDS: metroNIDAZOLE/SODIUM CHLORIDE 500 MG/100 ML BAG IV SCH ×3 (07:35→23:18)
[2016-11-12] MEDS: HYDROmorphone HCL 1 MG/ML DISP.SYRIN IV PRN ×6 (09:04→22:27)
--- NOTE | 2016-11-12 09:17 | PROC NOTE ---
ED Procedures - Additional Procedures Progress: pt weaned from vent this am per RT protocol starting at 0700, dr wright aware. Pt extubated by myself on 11/12/16 at 0907 per protocol with RT and RN at bedside. pt placed on nasal cannula by RT. airway intact post extubation. pt able to talk and converse post extubation. sats above 90%. will monitor pt closely. [facility] [place].
--- NOTE | 2016-11-12 12:01 | PN ---
Subjective - Date and Time Seen Date: 11/12/16 Time: 11:59 Objective Objective Narrative: POD1 Perforated Appendicitis with extensive peritonitis Extubated this morning. Doing well. No c/o. - Vitals Vitals: Last Vital Signs Temp 36.5 C 11/12/16 08:25 Pulse 97 11/12/16 10:25 Resp 24 H 11/12/16 10:25 BP 111/64 11/12/16 10:25 Pulse Ox 93 11/12/16 10:47 - Abnormal Lab Findings Abnormal Lab Findings: Abnormal Lab Results 11/11/16 11/12/16 11/12/16 Range/Units 23:38 05:47 05:47 WBC 15.3 H D (4.0-10.5) K/mm3 RBC 4.06 L (4.2-5.4) M/mm3 Hgb 12.2 L (12.5-16.0) gm/dL Hct 36.3 L (37.0-47.0) % MPV 10.1 H (6.0-9.5) fl Immature Gran # (Auto) 0.05 H (0.000-0.0310) K/mm3 Neutrophils % 83.9 H (42-75.0) % Lymphocytes % 10.8 L (20-51) % Neutrophils # 12.9 H (1.3-6.0) K/mm3 pO2 77.0 L (83.0-108.0) mmHg HCO3 18.8 L (21.0-28.0) mmol/L Base Excess -6.2 L (-2.0-3.0) mmol/L ABG pH 7.34 L (7.35-7.45) Potassium 3.3 L (3.4-4.6) mmol/L Chloride 109 H (97-106) mmol/L Random Glucose 112 H (70-110) mg/dL Calcium 7.7 L (7.9-10.9) mg/dL 11/12/16 Range/Units 06:05 WBC (4.0-10.5) K/mm3 RBC (4.2-5.4) M/mm3 Hgb (12.5-16.0) gm/dL Hct (37.0-47.0) % MPV (6.0-9.5) fl Immature Gran # (Auto) (0.000-0.0310) K/mm3 Neutrophils % (42-75.0) % Lymphocytes % (20-51) % Neutrophils # (1.3-6.0) K/mm3 pO2 76.7 L (83.0-108.0) mmHg HCO3 (21.0-28.0) mmol/L Base Excess -3.2 L (-2.0-3.0) mmol/L ABG pH (7.35-7.45) Potassium (3.4-4.6) mmol/L Chloride (97-106) mmol/L Random Glucose (70-110) mg/dL Calcium (7.9-10.9) mg/dL - Exam Constitutional: Present: Alert, Oriented x3, Cooperative, No distress Assessment/Plan Plan Narrative: A: Stable POD1, marked improvement P: Case d/w hospitalists. Continue IV Abx through 11/14. Start PO. Ambulated. OK for xfer from ICU. - Problems/Diagnosis (1) Acute appendicitis Problem: Acute Qualifiers: Acute appendicitis type: with generalized peritonitis Qualified Code(s): K35.2 - Acute appendicitis with generalized peritonitis
[2016-11-12] MEDS: LEVOFLOXACIN/D5W 750 MG/150 ML BAG IV SCH (14:58)
[2016-11-12] MEDS: NICOTINE 21 MG PATC TD SCH (16:44)
[2016-11-12] MEDS ORDERED: SUCRALFATE 1 G/10 ML UDC PO PRN (17:59)
[2016-11-13] MEDS: HYDROmorphone HCL 1 MG/ML DISP.SYRIN IV PRN ×6 (03:55→23:09)
[2016-11-13 05:44] LABS: Anion Gap 12.8 mmol/L (6.8-13.8); BUN/Creatinine Ratio 15.2 (9.0-21.6); Calcium * 8.3 mg/dL (7.9-10.9); Carbon Dioxide 24.4 mmol/L (24-32.6); Estimated Creat Clear 51.2; Potassium 3.2 mmol/L (3.4-4.6)
[2016-11-13 05:47] LABS: Hematocrit 37.8 % (37.0-47.0); Hemoglobin 12.6 gm/dL (12.5-16.0); Mean Cell Volume 90.9 fl (78-100); Mean Corpuscular Hemoglobin 30.3 pg (27-31); Mean Corpuscular Hgb Conc 33.3 g/dl (32-36); Neutrophil # 18.6 K/mm3 (1.3-6.0); Neutrophil % 90.6 % (42-75.0); Platelet Count 307 K/mm3 (150-450); Red Blood Count 4.16 M/mm3 (4.2-5.4); Red Cell Distribution Width 13.7 % (11.5-14.0); White Blood Count 20.5 K/mm3 (4.0-10.5)
[2016-11-13] MEDS ORDERED: POTASSIUM CHLORIDE 20 MEQ TABLET.SA PO ONE (06:32)
--- NOTE | 2016-11-13 06:46 | PN ---
Subjective - Date and Time Seen Date: 11/13/16 Subjective Narrative: Mrs. Blum examined this am. Is alert and in no distress. Complains of Abd pain/surgical site, but pain is well controlled with prn analgesics. Is requiring oxygen supplementation to keep pox > 90%. No other acute events overnight according to nursing. Objective - Vitals Vitals: Last Vital Signs Temp 36.5 C 11/13/16 03:05 Pulse 118 H 11/13/16 03:05 Resp 18 11/13/16 03:05 BP 124/62 11/13/16 03:05 Pulse Ox 91 11/13/16 03:05 - Abnormal Lab Findings Abnormal Lab Findings: Abnormal Lab Results 11/13/16 11/13/16 Range/Units 05:05 05:05 WBC 20.5 H D (4.0-10.5) K/mm3 RBC 4.16 L (4.2-5.4) M/mm3 MPV 11.0 H (6.0-9.5) fl Immature Gran % (Auto) 0.60 H (0.001-0.429) % Immature Gran # (Auto) 0.12 H (0.000-0.0310) K/mm3 Neutrophils % 90.6 H (42-75.0) % Lymphocytes % 5.8 L (20-51) % Neutrophils # 18.6 H (1.3-6.0) K/mm3 Lymphocytes # 1.2 L (1.5-3.5) k/mm3 Potassium 3.2 L (3.4-4.6) mmol/L Random Glucose 125 H (70-110) mg/dL - Exam Constitutional: Present: Alert, Oriented x3, No distress ENT Exam: Present: normal ENT inspection, hearing grossly normal. Absent: nasal congestion, nasal drainage Neck: Present: full range of motion, supple, normal inspection Breasts: Present: Exam deferred Respiratory: Present: lungs clear, No wheezing Cardiovascular/Chest: Present: normal peripheral pulses, regular rate, rhythm, no chest tenderness, no murmur Abdomen: Present: Normal bowel sounds, soft, tender /Rectal: Present: Exam deferred Extremity: Present: normal range of motion, non-tender, normal inspection, no pedal edema Skin Exam: Present: warm/dry, no cyanosis Lymphatic: Present: no adenopathy Neurologic: Present: alert, normal mood/affect, oriented x 3 Appearance: Present: appropriate appearance, appropriate insight Eye contact: Present: cooperative, good eye contact, normal speech Thoughts: Present: normal thought pattern, no apparent hallucination Assessment/Plan - Problems/Diagnosis (1) Appendicitis Problem: Acute Narrative: POD # 1 following appendectomy on 11/11/16. Will continue with IV Flagyl & Levaquin till 11/14/16 but if no improvement in WBC, may extend the IV antibiotics till day 5 postoperatively. CBC in am. (2) Appendectomy Problem: Acute Narrative: Surgery following pt; follow their recommendations. (3) Weaning from mechanically assisted ventilation completed Problem: Acute Narrative: Successfully liberated from mechanical ventilation on 11/12/16. Doing well. requiring o2 supplementation. Push IS. has long history of prior smoking. (4) HTN (hypertension) Problem: Chronic Qualifiers: Hypertension type: essential hypertension Qualified Code(s): I10 - Essential (primary) hypertension (5) HLD (hyperlipidemia) Problem: Chronic
[2016-11-13] MEDS: metroNIDAZOLE/SODIUM CHLORIDE 500 MG/100 ML BAG IV SCH ×3 (06:56→23:10)
[2016-11-13] MEDS: PARoxetine HCL 20 MG TABLET PO SCH (09:24)
[2016-11-13] MEDS: amLODIPine BESYLATE 10 MG TABLET PO SCH (09:24)
[2016-11-13] MEDS: ASPIRIN 325 MG TABLET.DR PO SCH (09:24)
[2016-11-13] MEDS: CLOPIDOGREL BISULFATE 75 MG TABLET PO SCH (09:24)
[2016-11-13] MEDS: METOPROLOL SUCCINATE 25 MG TABLET.SA PO SCH (09:25)
--- NOTE | 2016-11-13 10:33 | PN ---
Subjective - Date and Time Seen Date: 11/13/16 Time: 10:27 Subjective Narrative: POD2 Open appy for perforated appendicitis and generalized peritonitis + Flatus + BM Tolerating clears Minimal discomfort Requiring oxygen due to COPD Objective - Review of Systems Respiratory: Reports: Shortness of Breath Misc: All systems neg except as marked - Vitals Vitals: Last Vital Signs Temp 36.8 C 11/13/16 07:07 Pulse 113 H 11/13/16 09:25 Resp 20 11/13/16 07:07 BP 131/61 11/13/16 09:25 Pulse Ox 92 11/13/16 07:07 - Abnormal Lab Findings Abnormal Lab Findings: Abnormal Lab Results 11/13/16 11/13/16 Range/Units 05:05 05:05 WBC 20.5 H D (4.0-10.5) K/mm3 RBC 4.16 L (4.2-5.4) M/mm3 MPV 11.0 H (6.0-9.5) fl Immature Gran % (Auto) 0.60 H (0.001-0.429) % Immature Gran # (Auto) 0.12 H (0.000-0.0310) K/mm3 Neutrophils % 90.6 H (42-75.0) % Lymphocytes % 5.8 L (20-51) % Neutrophils # 18.6 H (1.3-6.0) K/mm3 Lymphocytes # 1.2 L (1.5-3.5) k/mm3 Potassium 3.2 L (3.4-4.6) mmol/L Random Glucose 125 H (70-110) mg/dL - Exam Constitutional: Present: Alert, Oriented x3, Cooperative, No distress Respiratory: Present: no respiratory distress, other - O2 PNC Abdomen: Present: other - Drsg intact. Having drainage which is to be expected. Assessment/Plan Plan Narrative: A: Improving P: WBC up to 20K. Expected. Agree with plans to extend IV Abx coverage beyond 11/14. Will advance to regular diet. - Problems/Diagnosis (1) Acute appendicitis Problem: Acute Qualifiers: Acute appendicitis type: with generalized peritonitis Qualified Code(s): K35.2 - Acute appendicitis with generalized peritonitis (2) COPD (chronic obstructive pulmonary disease) Problem: Chronic Qualifiers: COPD type: unspecified COPD Qualified Code(s): J44.9 - Chronic obstructive pulmonary disease, unspecified
[2016-11-13] MEDS: NICOTINE 21 MG PATC TD SCH (16:12)
[2016-11-13] MEDS: LEVOFLOXACIN/D5W 750 MG/150 ML BAG IV SCH (16:39)
[2016-11-13] MEDS ORDERED: SIMVASTATIN 20 MG TABLET PO SCH (21:00)
[2016-11-14] MEDS: HYDROmorphone HCL 1 MG/ML DISP.SYRIN IV PRN ×2 (04:51→09:47)
[2016-11-14 06:01] LABS: Hematocrit 36.9 % (37.0-47.0); Hemoglobin 12.3 gm/dL (12.5-16.0); Mean Cell Volume 90.7 fl (78-100); Mean Corpuscular Hemoglobin 30.2 pg (27-31); Mean Corpuscular Hgb Conc 33.3 g/dl (32-36); Mean Platelet Volume 10.5 fl (6.0-9.5); Platelet Count 307 K/mm3 (150-450); Red Blood Count 4.07 M/mm3 (4.2-5.4); Red Cell Distribution Width 13.6 % (11.5-14.0); White Blood Count 18.4 K/mm3 (4.0-10.5)
[2016-11-14 06:11] LABS: Anion Gap 13.1 mmol/L (6.8-13.8); BUN/Creatinine Ratio 14.9 (9.0-21.6); Calcium * 8.6 mg/dL (7.9-10.9); Carbon Dioxide 24.2 mmol/L (24-32.6); Estimated Creat Clear 54.2; Potassium 3.3 mmol/L (3.4-4.6)
[2016-11-14 06:17] LABS: Total Cells Counted 100
[2016-11-14 06:43] LABS: Band 1 % (0-2.0); Lymphocyte 11 % (20-51); Platelet Estimate Normal (NORMAL)
[2016-11-14 06:44] LABS: Hypersegmented Polys Trace; Monocyte 1 % (0-9); Neutrophil 87 % (42-75)
[2016-11-14 06:46] LABS: Polychromasia Trace; Toxic Granulation 1+
--- NOTE | 2016-11-14 08:27 | PN ---
Subjective - Date and Time Seen Date: 11/14/16 Time: 08:11 Subjective Narrative: POD2 Perf appy, done open. Extensive peritonitis. Feeling a little better. Poor appetite. Objective Objective Narrative: Drsg C/D/I - Vitals Vitals: Last Vital Signs Temp 36.7 C 11/14/16 06:51 Pulse 94 11/14/16 06:51 Resp 24 H 11/14/16 06:51 BP 123/53 11/14/16 06:51 Pulse Ox 4 L 11/14/16 07:58 - Abnormal Lab Findings Abnormal Lab Findings: Abnormal Lab Results 11/14/16 11/14/16 Range/Units 05:35 05:35 WBC 18.4 H (4.0-10.5) K/mm3 RBC 4.07 L (4.2-5.4) M/mm3 Hgb 12.3 L (12.5-16.0) gm/dL Hct 36.9 L (37.0-47.0) % MPV 10.5 H (6.0-9.5) fl Neutrophils % (Manual) 87 H (42-75) % Lymphocytes % (Manual) 11 L (20-51) % Neutrophils # (Manual) 16.0 H (1.3-6.0) K/mm3 Potassium 3.3 L (3.4-4.6) mmol/L Random Glucose 116 H (70-110) mg/dL Assessment/Plan Plan Narrative: POD3 Perf appy Improving Pulling wound packing POD5 Needs ongoing IV Abx through POD5 total of 14 days Oral+IV. Case d/w hospitalist - Problems/Diagnosis (1) Acute appendicitis Problem: Acute Qualifiers: Acute appendicitis type: with generalized peritonitis Qualified Code(s): K35.2 - Acute appendicitis with generalized peritonitis (2) COPD (chronic obstructive pulmonary disease) Problem: Chronic Qualifiers: COPD type: unspecified COPD Qualified Code(s): J44.9 - Chronic obstructive pulmonary disease, unspecified
[2016-11-14] MEDS: PARoxetine HCL 20 MG TABLET PO SCH (08:37)
[2016-11-14] MEDS: ASPIRIN 325 MG TABLET.DR PO SCH ×2 (08:37→08:38)
[2016-11-14] MEDS: amLODIPine BESYLATE 10 MG TABLET PO SCH (08:37)
[2016-11-14] MEDS: metroNIDAZOLE/SODIUM CHLORIDE 500 MG/100 ML BAG IV SCH ×2 (08:37→16:41)
[2016-11-14] MEDS: CLOPIDOGREL BISULFATE 75 MG TABLET PO SCH (08:38)
[2016-11-14] MEDS: METOPROLOL SUCCINATE 25 MG TABLET.SA PO SCH (08:38)
[2016-11-14] MEDS: LEVOFLOXACIN/D5W 750 MG/150 ML BAG IV SCH (14:52)
[2016-11-14 14:57] VITALS: BP 133/71
[2016-11-14] MEDS ORDERED: ALBUTEROL SULFATE/IPRATROPIUM 3 ML NEBU IH ONE (15:00)
[2016-11-14] MEDS ORDERED: ALBUTEROL SULFATE/IPRATROPIUM 3 ML NEBU IH SCH (15:00)
[2016-11-14 15:06] LABS: Hematocrit 38.1 % (37.0-47.0); Hemoglobin 12.7 gm/dL (12.5-16.0); Mean Cell Volume 89.2 fl (78-100); Mean Corpuscular Hemoglobin 29.7 pg (27-31); Mean Corpuscular Hgb Conc 33.3 g/dl (32-36); Mean Platelet Volume 10.5 fl (6.0-9.5); Neutrophil # 17.6 K/mm3 (1.3-6.0); Neutrophil % 89.4 % (42-75.0); Platelet Count 327 K/mm3 (150-450); Red Blood Count 4.27 M/mm3 (4.2-5.4); Red Cell Distribution Width 13.6 % (11.5-14.0); White Blood Count 19.7 K/mm3 (4.0-10.5)
[2016-11-14 15:26] LABS: Troponin I 1.324 ng/ml (0.00-0.10)
[2016-11-14 15:33] LABS: Albumin * 2.4 gm/dl (3.4-5.0); Anion Gap 12.7 mmol/L (6.8-13.8); BUN/Creatinine Ratio 14.5 (9.0-21.6); Bilirubin, Total 0.4 mg/dL (0.0-1.1); Ca. Corrected For Albumin 9.6 mg/dL (8.4-10.2); Calcium * 8.6 mg/dL (7.9-10.9); Carbon Dioxide 25.5 mmol/L (24-32.6); Potassium 3.2 mmol/L (3.4-4.6); Total Protein 6.5 gm/dL (6.2-8.2)
[2016-11-14] MEDS ORDERED: FUROSEMIDE 10 MG/ML VIAL IV ONE (16:14)
[2016-11-14] MEDS ORDERED: FUROSEMIDE 10 MG/ML VIAL ONE (16:14)
[2016-11-14] MEDS ORDERED: ASPIRIN 325 MG TABLET.DR PO ONE (16:30)
[2016-11-14] MEDS: NICOTINE 21 MG PATC TD SCH (16:41)
--- NOTE | 2016-11-14 16:42 | DS ---
Transfer Discharge Summary - Diagnosis(s)/Problems (1) NSTEMI (non-ST elevated myocardial infarction) Problem: Acute (2) Respiratory distress Problem: Acute (3) Acute appendicitis Problem: Acute (4) S/P appendectomy Problem: Acute (5) Weaning from mechanically assisted ventilation completed Problem: Acute (6) COPD (chronic obstructive pulmonary disease) Problem: Chronic (7) HLD (hyperlipidemia) Problem: Chronic (8) HTN (hypertension) Problem: Chronic - Course Description of Stay: Date of admission: 11/11/16 Date of discharge: 11/14/16 Laney is a 66 year old female who presented to the ER on 11/11/16 with c/o abdominal pain. CT showed acute appendicitis with significant inflammatory changes. She was taken to surgery that night and underwent an open appendectomy by Dr. Vanessa on 11/11/16 and was placed on Flagyl and Levaquin iv post op due to perforation and extensive peritonitis. She was unable to be weaned from the ventilator in PACU and thus was admitted to the SCU intubated. In the am on 11/12/16, ventilator weaning protocol was started and she was able to be extubated that morning. On 11/13/16, she continued to have significant surgical site pain causing her to take shallow breaths and not use incentive spirometer adequately. IV levaquin and IV flagyl were continued. on 11/14/16, she developed severe respiratory distress, increased O2 needs to 3-4 liters via nc, developed a pericardial rub with crackles/rhonchi in her lungs. troponin was drawn and came back at 1.324. of note, patient does have a history of chronic, technician terminal and repeater tobacco abuse at 2 -2.5 packs per day. ekg was also done and showed inverted t waves in contigous lead. Due to the severity of her condition, pt was transferred to [facility] via [facility] in critical condition. Consultation Done:: general surgery Procedures Performed: see notes below Procedures: open appendectomy by dr landeros on 11/11/16 - Results and Findings Results and Findings: Laboratory Results - last 24 hr 11/14/16 11/14/16 11/14/16 05:35 05:35 15:00 WBC 18.4 H 19.7 H RBC 4.07 L 4.27 Hgb 12.3 L 12.7 Hct 36.9 L 38.1 MCV 90.7 89.2 MCH 30.2 29.7 MCHC 33.3 33.3 RDW 13.6 13.6 Plt Count 307 327 MPV 10.5 H 10.5 H Immature Gran % (Auto) 0.50 H Immature Gran # (Auto) 0.10 H Neutrophils % 89.4 H Neutrophils % (Manual) 87 H Band Neuts % (Manual) 1 Lymphocytes % 5.0 L Lymphocytes % (Manual) 11 L Monocytes % 4.7 Monocytes % (Manual) 1 Eosinophils % 0.2 Basophils % 0.2 Nucleated RBC % 0.0 Neutrophils # 17.6 H Neutrophils # (Manual) 16.0 H Lymphocytes # 1.0 L Lymphocytes # (Manual) 2.0 Monocytes # 0.9 Monocytes # (Manual) 0.2 Eosinophils # 0.0 Absolute Basophils 0.0 Hypersegmented Polys Trace Toxic Granulation 1+ Platelet Estimate Normal Polychromasia Trace pCO2 pO2 HCO3 Total CO2 Base Excess ABG pH ABG O2 Sat (Measured) Sodium 140 Plasma Sodium 140 Potassium 3.3 L Chloride 106 Carbon Dioxide 24.2 Anion Gap 13.1 BUN 13 Creatinine 0.87 Est GFR (Non-Af Amer) 69 BUN/Creatinine Ratio 14.9 Random Glucose 116 H Lactic Acid, Venous Calcium 8.6 Calcium Adj for Albumin Total Bilirubin AST ALT Alkaline Phosphatase Troponin I B-Natriuretic Peptide Total Protein Albumin Procalcitonin 11/14/16 11/14/16 11/14/16 15:00 15:00 15:00 WBC RBC Hgb Hct MCV MCH MCHC RDW Plt Count MPV Immature Gran % (Auto) Immature Gran # (Auto) Neutrophils % Neutrophils % (Manual) Band Neuts % (Manual) Lymphocytes % Lymphocytes % (Manual) Monocytes % Monocytes % (Manual) Eosinophils % Basophils % Nucleated RBC % Neutrophils # Neutrophils # (Manual) Lymphocytes # Lymphocytes # (Manual) Monocytes # Monocytes # (Manual) Eosinophils # Absolute Basophils Hypersegmented Polys Toxic Granulation Platelet Estimate Polychromasia pCO2 pO2 HCO3 Total CO2 Base Excess ABG pH ABG O2 Sat (Measured) Sodium 140 Plasma Sodium 140 Potassium 3.2 L Chloride 105 Carbon Dioxide 25.5 Anion Gap 12.7 BUN 12 Creatinine 0.83 Est GFR (Non-Af Amer) 73 BUN/Creatinine Ratio 14.5 Random Glucose 123 H Lactic Acid, Venous 1.0 Calcium 8.6 Calcium Adj for Albumin 9.6 Total Bilirubin 0.4 AST 35 ALT 17 L Alkaline Phosphatase 109 Troponin I 1.324 H* B-Natriuretic Peptide 6731 H Total Protein 6.5 Albumin 2.4 L Procalcitonin 3.24 H 11/14/16 15:05 WBC RBC Hgb Hct MCV MCH MCHC RDW Plt Count MPV Immature Gran % (Auto) Immature Gran # (Auto) Neutrophils % Neutrophils % (Manual) Band Neuts % (Manual) Lymphocytes % Lymphocytes % (Manual) Monocytes % Monocytes % (Manual) Eosinophils % Basophils % Nucleated RBC % Neutrophils # Neutrophils # (Manual) Lymphocytes # Lymphocytes # (Manual) Monocytes # Monocytes # (Manual) Eosinophils # Absolute Basophils Hypersegmented Polys Toxic Granulation Platelet Estimate Polychromasia pCO2 35.8 pO2 39.1 L* HCO3 23.7 Total CO2 24.8 H Base Excess 0.0 ABG pH 7.44 ABG O2 Sat (Measured) 76.2 L Sodium Plasma Sodium Potassium Chloride Carbon Dioxide Anion Gap BUN Creatinine Est GFR (Non-Af Amer) BUN/Creatinine Ratio Random Glucose Lactic Acid, Venous Calcium Calcium Adj for Albumin Total Bilirubin AST ALT Alkaline Phosphatase Troponin I B-Natriuretic Peptide Total Protein Albumin Procalcitonin - Medications Medications: Active Medications Albuterol/Ipratropium (Duoneb 2.5-0.5mg/3ml Soln) 3 ml IH QIDRT PABLITO Stop: 12/14/16 15:01 Last Admin: 11/14/16 15:12 Dose: 3 ml Amlodipine Besylate (Norvasc) 10 mg PO DAILY P[facility]LITO Stop: 12/13/16 09:01 Last Admin: 11/14/16 08:37 Dose: 10 mg Aspirin (Aspirin Enteric Coated) 325 mg PO DAILY PABLITO Stop: 12/13/16 09:01 Last Admin: 11/14/16 08:38 Dose: Not Given Clopidogrel Bisulfate (Plavix) 75 mg PO DAILY PABLITO Stop: 12/13/16 09:01 Last Admin: 11/14/16 08:38 Dose: 75 mg Hydromorphone HCl (Dilaudid) 0.5 mg IV Q1H PRN PRN Reason: Pain Stop: 12/12/16 07:28 Last Admin: 11/14/16 09:47 Dose: 0.5 mg Hydromorphone HCl (Dilaudid) 1 mg IV Q1H PRN PRN Reason: Pain Stop: 12/12/16 07:28 Last Admin: 11/13/16 03:55 Dose: 1 mg Metronidazole (Flagyl) 500 mg in 100 mls @ 100 mls/hr IV Q8H [facility] Stop: 12/11/16 23:46 Last Admin: 11/14/16 08:37 Dose: 100 mls/hr Levofloxacin/Dextrose (Levaquin) 750 mg in 150 mls @ 100 mls/hr IV Q24H [facility] Stop: 12/12/16 15:31 Last Admin: 11/14/16 14:52 Dose: 100 mls/hr Metoprolol Succinate (Toprol Xl) 25 mg PO DAILY [facility] Stop: 12/13/16 09:01 Last Admin: 11/14/16 08:38 Dose: 25 mg Morphine Sulfate (Morphine Sulfate) 2 mg IV Q15M PRN PRN Reason: Severe Pain Stop: 12/11/16 16:44 Last Admin: 11/12/16 08:45 Dose: 2 mg Nicotine (Nicoderm) 21 mg TD Q24H [facility] Stop: 12/12/16 16:31 Last Admin: 11/13/16 16:12 Dose: Not Given Ondansetron HCl (Zofran) 4 mg IV Q4H PRN PRN Reason: Nausea And Vomiting Stop: 12/11/16 16:44 Last Admin: 11/14/16 14:53 Dose: 4 mg Paroxetine HCl (Paxil) 40 mg PO DAILY [facility] Stop: 12/13/16 09:01 Last Admin: 11/14/16 08:37 Dose: 40 mg Simvastatin (Zocor) 20 mg PO HS [facility] Stop: 12/13/16 21:01 Last Admin: 11/13/16 19:59 Dose: 20 mg Sucralfate (Carafate Suspension) 1 g PO ACHS PRN PRN Reason: Indigestion Stop: 12/12/16 21:01 Last Admin: 11/12/16 18:35 Dose: 1 g Discontinued Medications Diatrizoate Meglum/Diatrizoate Sod (Gastrografin Solution) 60 ml PO ONCE ONE Stop: 11/11/16 11:14 Last Admin: 11/11/16 11:26 Dose: 60 ml Hydromorphone HCl (Dilaudid) 1 mg IV ONCE ONE Stop: 11/12/16 07:11 Last Admin: 11/12/16 07:23 Dose: 1 mg Sodium Chloride (Sodium Chloride 0.9%) 1,000 mls @ 999 mls/hr IV .Q1H1M ONE Stop: 11/11/16 13:28 Last Infusion: 11/11/16 13:31 Dose: Infused Metronidazole (Flagyl) 500 mg in 100 mls @ 100 mls/hr IV Q8H [facility] Stop: 12/11/16 15:46 Last Infusion: 11/11/16 18:37 Dose: Infused Levofloxacin/Dextrose (Levaquin) 750 mg in 150 mls @ 100 mls/hr IV Q24H [facility] Stop: 12/11/16 15:46 Last Infusion: 11/11/16 17:38 Dose: Infused Sodium Chloride (Sodium Chloride 0.9%) 1,000 mls @ 125 mls/hr IV .Q8H ONE Stop: 11/12/16 00:43 Last Admin: 11/11/16 18:51 Dose: 125 mls/hr Lactated Ringer's (Lactated Ringers) 1,000 mls @ 125 mls/hr IV .Q8H ONE Stop: 11/12/16 05:23 Last Admin: 11/11/16 22:48 Dose: 125 mls/hr Morphine Sulfate (Morphine Sulfate) 4 mg IV ONCE ONE Stop: 11/11/16 11:14 Last Admin: 11/11/16 11:18 Dose: 4 mg Morphine Sulfate (Morphine Sulfate) 4 mg IV ONCE ONE Stop: 11/11/16 11:44 Last Admin: 11/11/16 11:46 Dose: 4 mg Morphine Sulfate (Morphine Sulfate) 4 mg IV ONCE ONE Stop: 11/11/16 14:19 Last Admin: 11/11/16 14:24 Dose: 4 mg Ondansetron HCl (Zofran) 4 mg IV ONCE ONE Stop: 11/11/16 11:14 Last Admin: 11/11/16 11:18 Dose: 4 mg Ondansetron HCl (Zofran Odt) 4 mg PO ONCE ONE Stop: 11/11/16 11:11 Last Admin: 11/11/16 11:10 Dose: 4 mg Potassium Chloride (K-Dur) 40 meq PO ONCE ONE Stop: 11/13/16 06:33 Last Admin: 11/13/16 06:51 Dose: 40 meq - Disposition Disposition: [facility] Condition: Critical
== END 2016-11-14 16:40 | disposition short-term general hospital (02) | DRG 338 ==
LOC: ER 09:58 → MS 16:26 → SCU 22:22 → MS 11-12 12:28
PROVIDERS: ADMIT Nurse Practitioner Critical Care Medicine; ATTEND Internal Medicine
PROC: 0DJD4ZZ Inspection of Lower Intestinal Tract, Percutaneous Endoscopic Approach (ICD-10-PCS; 2016-11-11)
PROC: 5A1935Z Respiratory Ventilation, Less than 24 Consecutive Hours (ICD-10-PCS; 2016-11-11)
PROC: 4A033R1 Measurement of Arterial Saturation, Peripheral, Percutaneous Approach (ICD-10-PCS; 2016-11-11)
PROC: 0DTJ0ZZ Resection of Appendix, Open Approach (ICD-10-PCS; principal; 2016-11-11 16:30)
DX: K35.2 Acute appendicitis with generalized peritonitis (principal); I21.4 Non-ST elevation (NSTEMI) myocardial infarction; R06.00 Dyspnea, unspecified; M62.81 Muscle weakness (generalized); T48.1X5A Adverse effect of skeletal muscle relaxants [neuromuscular blocking agents], initial encounter; Y92.234 Operating room of hospital as the place of occurrence of the external cause; E78.5 Hyperlipidemia, unspecified; I10 Essential (primary) hypertension; F17.210 Nicotine dependence, cigarettes, uncomplicated; Z86.73 Personal history of transient ischemic attack (TIA), and cerebral infarction without residual deficits

== ENCOUNTER 2020-06-10 14:56 | Observation (INO) ==
--- NOTE | 2020-06-10 15:27 | ERNOTE ---
Abdominal HPI - Narrative Date of Service: 06/10/20 - General Chief Complaint: Abdominal Pain Time Seen by Provider: 06/10/20 15:19 Source: patient Exam Limitations: no limitations - Immun/Allergies/Home Medications Immunizatons: IMMUNIZATION HX Immunizations Up to Date No History of Influenza Vaccine Yes Hx Pneumococcal Vaccination Yes Allergies/Adverse Reactions: Allergies sulfamethoxazole [From Bactrim] Adverse Reaction (Verified 06/10/20 15:09) trimethoprim [From Bactrim] Adverse Reaction (Verified 06/10/20 15:09) Home Medications: HOME MEDICATIONS Clopidogrel Bisulfate [Plavix] 75 mg PO DAILY 11/11/16 [Last Taken 11/11/16 07:00] Aspirin [Aspirin EC] 81 mg PO DAILY 02/06/17 [Last Taken Unknown] metoprolol succinate 100 mg tablet,extended release 24 hr See Rx Instructions .ROUTE .COMPLEX #90 unknown measurement unit code: not specified 01/07/20 [Last Taken Unknown] amlodipine 10 mg tablet See Rx Instructions .ROUTE .COMPLEX #90 unspecified 03/23/20 [Last Taken Unknown] paroxetine HCl 40 mg tablet See Rx Instructions .ROUTE .COMPLEX #90 tab 03/23/20 [Last Taken Unknown] Atorvastatin Calcium 40 mg PO DAILY 06/10/20 [Last Taken Unknown] Vitamin D3 06/10/20 [Last Taken Unknown] - History of Present Illness Narrative: Patient is a 69 years old female who presented complaining of having bright blood per rectum 3 times today. Patient reports having diarrhea yesterday with bright red blood on the toilet paper when wiping. However today she had 3 bowel movements with the first 1 with a little bit of stool, and the last 2 without stool at all, and the 3 of them with a large amount of dried blood with some clots. Patient is on Plavix, aspirin, and Excedrin daily. On Plavix and aspirin since 2008, and Excedrin daily for 20 years. Patient reports to be on Plavix following a cleaning of her carotids. She denies previous GI bleed. She reports having her last colonoscopy for 5 years ago. She reports that she has colon cancer in her family. Timing: constant Quality: moderate Activities at Onset: none Modifying Factors - (Worsens): Present: other - Shipley on Plavix, aspirin, and excedrin Associated Symptoms: Present: denies symptoms Prior Abdominal Problems: Present: none Review of Systems - Review of Systems Constitutional: Absent: fever EYE: Absent: eye pain ENT: Absent: ear pain Respiratory: Absent: shortness of breath Cardiology: Absent: chest pain Gastrointestinal/Abdominal: Present: diarrhea, other - Bloody stool. Absent: nausea, vomiting Genitourinary: Absent: pain, dysuria Musculoskeletal: Absent: back pain, muscle pain Hematologic/Lymphatic: Present: easy bruising - On Plavix All Other Systems: All systems neg except as marked Medical History (Last Reviewed 06/10/20 @ 15:09 by Joellen Bui RN) History of transient ischemic attack (TIA) (Resolved) Onset Date: 09/21/16 History of NM (myocardial infarction) (Resolved) Onset Date: 11/14/16 acute, non ST segment elevation Anxiety (Chronic) Onset Date: Unknown Hyperlipidemia (Chronic) Onset Date: Unknown Hypertension (Chronic) Onset Date: Unknown Surgical History: Surgical History (Last Updated 06/10/20 @ 15:09 by Joellen Bui RN) Carotid artery disorder blockage cleared out H/O carotid endarterectomy Onset Date: ~2009 right History of appendectomy Onset Date: 11/11/16 Tommeraasen-open for perforation and extensive peritonitis History of section Onset Date: ~1983 History of colonoscopy Onset Date: ~2015 negative-2001 2008 polyps 2016 [place] hyperplastic polyp recheck 5-10 yrs History of heart artery stent Onset Date: 11/21/16 ESTRADA to LAD History of spinal fusion Onset Date: ~1985 History of tubal ligation Onset Date: ~1987 Family History: Family History (Last Reviewed 06/10/20 @ 15:09 by Joellen Bui RN) Father , age 69 Myocardial infarction Mother Cancer colon Social History: (Last Updated 06/10/20 @ 15:09 by Joellen Bui RN) Social History: Marital status: lives independently: Yes number of children: 1 Service: No Tobacco: Smoking Status: Current every day smoker Smoking cigarettes per day: 20 Alcohol: alcohol intake: never Substance Use: substance use type: does not use Dietary Habits: caffeine: Yes Physical Exam - Physical Exam General Appearance: Present: wd/wn, no apparent distress, mild distress Head Exam: Present: normal inspection Eye Exam: Normal inspection: bilateral Ears, Nose, Throat: Present: normal ENT inspection Neck: Present: normal inspection Respiratory: Present: no respiratory distress Cardiovascular/Chest: Present: regular rate, rhythm Peripheral Pulses: N=norm/S=strong/W=weak/B=bound/A=absent: Radial (R): Normal Gastrointestinal/Abdominal: Present: normal bowel sounds. Absent: rebound, McBurney sign, Obturator sign, Floyd sign Rectal Exam: Present: other - no external hemorrhoids, no evidence source of bleed in the rectal vault Back Exam: Present: normal inspection Extremity Exam: Present: normal inspection Neurological Exam: Present: alert, oriented Skin Exam: Present: normal color Lymphatic Exam: Present: no adenopathy Progress - Results and Orders Patient's Lab Results:: I have reviewed the patient's lab results. - Vital Signs Patient's Vital Signs:: I have reviewed the patient's vital signs. Vital Signs: Vital Signs 06/10/20 14:56 Temperature 37.1 C Pulse Rate 73 Respiratory Rate 16 Blood Pressure 170/79 H O2 Sat by Pulse Oximetry 98 - Progress/Reassessment Chief Complaint: Abdominal Pain Progress:: Unchanged Progress Note-Subjective: 06/10/20 17:00 - Patient had 4 bowel movement of only blood today, bright red with clots. Her last blood bowel movement was in the ED and I saw it myself and it was bright red blood with clots. I discussed case with Dr Garcia, who accepted admission and will consult general surgery, Dr Coffman, tomorrow. I discussed with patient and and they agreed with this plan Plan - Plan Plan: Patient is a 69 years old female with complaint of 3 bloody bowel movement with bright blood and clot at home prior to coming to the ED. In the ED patient had a bowel movement which I personally witnessed, which was bright blood with clots and no stool. Patient vitals are stable however considering she had 4 bloody bowel movement since this morning, it is prudent to admit her for observation and have her see our general surgeon tomorrow morning for further investigation. I discussed this case with Dr. Garcia who agreed with this plan and accepted her admission. I gave a dose of 80 mg of Protonix IV to patient in the ED. Departure Clinical Impression: Acute GI bleeding - Departure Disposition: Short Term Hospital Inpatient Condition: Stable
[2020-06-10 15:39] LABS: Hemoglobin 15.7 gm/dL (12.5-16.0); Mean Cell Volume 90.4 fl (78-100); Mean Corpuscular Hemoglobin 29.6 pg (27-31); Mean Corpuscular Hgb Conc 32.7 g/dl (32-36); Mean Platelet Volume 10.5 fl (8-12.5); Neutrophil # 6.1 K/mm3 (1.3-6.0); Neutrophil % 61.9 % (42-75.0); Platelet Count 322 K/mm3 (150-450); Red Blood Count 5.31 M/mm3 (4.2-5.4); Red Cell Distribution Width 13.2 % (11.5-14.0); White Blood Count 9.8 K/mm3 (4.0-10.5)
[2020-06-10 15:50] LABS: Prothrombin Time (Patient) 10.8 Seconds (9.1-10.7)
[2020-06-10 15:53] LABS: Albumin * 3.6 gm/dl (3.4-5.0); Anion Gap 12.5 mmol/L (6.8-13.8); BUN/Creatinine Ratio 8.3 (9.0-21.6); Bilirubin, Total 0.3 mg/dL (0.0-1.1); Ca. Corrected For Albumin 9.4 mg/dL (8.4-10.2); Calcium * 9.4 mg/dL (7.9-10.9); Carbon Dioxide 25.4 mmol/L (24-32.6); Potassium 3.9 mmol/L (3.4-4.6); Total Protein 7.6 gm/dL (6.2-8.2)
[2020-06-10 15:57] LABS: INR 1.09 INR (0.92-1.08); Partial Thrombolplastin Time 29.1 Seconds (24-32)
[2020-06-10] MEDS ORDERED: PANTOPRAZOLE SODIUM 80 MG in NORMAL SALINE 100 ML IV ONE (18:04)
[2020-06-10] MEDS ORDERED: ACETAMINOPHEN 325 MG TABLET PO PRN (19:48)
--- NOTE | 2020-06-10 20:02 | HP ---
Chief Complaint - Chief Complaint Date of Service: 06/10/20 Time of Service: 19:30 Chief Complaint: bleeding from rectum History of Present Illness: Patient with PMHx of HTN, carotid artery stenosis on plavix and aspirin, and daily headaches presented to the ED after having some bleeding from her rectum at home. She has some mild abdominal cramping intermittently. She takes excedrin daily for her headaches. She was having some diarrhea yesterday, and a small amount of blood when she wiped. Today, every time she would urinate, she would pass blood. She denies SOB, constipation, urinary symptoms, or skin complaints. This has not happened before. In the ED, her BP was high, otherwise vitals were normal. Hemoglobin was 15.7 in the ED. She had a couple of episodes of passing blood, and she was admitted for observation. Medical History (Last Reviewed 06/10/20 @ 19:22 by Angelique Peña RN) History of transient ischemic attack (TIA) (Resolved) Onset Date: 09/21/16 History of DE (myocardial infarction) (Resolved) Onset Date: 11/14/16 acute, non ST segment elevation Anxiety (Chronic) Onset Date: Unknown Hyperlipidemia (Chronic) Onset Date: Unknown Hypertension (Chronic) Onset Date: Unknown Surgical History: Surgical History (Last Reviewed 06/10/20 @ 19:22 by Angelique Peña RN) Carotid artery disorder blockage cleared out H/O carotid endarterectomy Onset Date: ~2009 right History of appendectomy Onset Date: 11/11/16 Tommeraasen-open for perforation and extensive peritonitis History of section Onset Date: ~1983 History of colonoscopy Onset Date: ~2015 negative-2000 2008 polyps 2016 [place] hyperplastic polyp recheck 5-10 yrs History of heart artery stent Onset Date: 11/21/16 ESTRADA to LAD History of spinal fusion Onset Date: ~1985 History of tubal ligation Onset Date: ~1987 Family History: Family History (Last Reviewed 06/10/20 @ 19:22 by Angelique Peña RN) Father , age 69 Myocardial infarction Mother Cancer colon Social History: (Last Reviewed 06/10/20 @ 19:23 by Angelique Peña RN) Social History: Marital status: lives independently: Yes number of children: 1 Service: No Tobacco: Smoking Status: Current every day smoker Smoking cigarettes per day: 20 Alcohol: alcohol intake: never Substance Use: substance use type: does not use Dietary Habits: caffeine: Yes Review Of Systems (GEN) - Review of Systems Generalized/Overall Review: Absent: Weakness, Fever Respiratory: Absent: Cough, Shortness of Breath Cardiac: Absent: Chest Pain, Edema Abdominal: Present: Bright blood from rectum. Absent: Vomiting, Abdominal Pain Genitourinary: Present: No Symptoms Reported Musculoskeletal: Present: No Symptoms Reported Neurological: Present: Headache Skin: Present: No Symptoms Reported Immunizations: IMMUNIZATION HX Immunizations Up to Date No History of Influenza Vaccine Yes Hx Pneumococcal Vaccination Yes Allergies/Adverse Reactions: Allergies Allergy/AdvReac Type Severity Reaction Status Date / Time sulfamethoxazole AdvReac Verified 06/10/20 19:23 [From Bactrim] trimethoprim [From Bactrim] AdvReac Verified 06/10/20 19:23 Home Medications: HOME MEDICATIONS Clopidogrel Bisulfate [Plavix] 75 mg PO DAILY 11/11/16 [Last Taken 06/10/20 0900] Aspirin [Aspirin EC] 81 mg PO DAILY 02/06/17 [Last Taken 06/10/20 09:00] metoprolol succinate 100 mg tablet,extended release 24 hr See Rx Instructions .ROUTE .COMPLEX #90 unknown measurement unit code: not specified 01/07/20 [Last Taken 06/10/20 09:00] amlodipine 10 mg tablet See Rx Instructions .ROUTE .COMPLEX #90 unspecified 03/23/20 [Last Taken 06/10/20 09:00] paroxetine HCl 40 mg tablet See Rx Instructions .ROUTE .COMPLEX #90 tab 03/23/20 [Last Taken 06/10/20 09:00] Atorvastatin Calcium 40 mg PO DAILY 06/10/20 [Last Taken 06/09/20 21:00] Cholecalciferol (Vitamin D3) [Vitamin D3] 2,000 unit PO DAILY 06/10/20 [Last Taken 06/10/20 09:00] Omeprazole 20 mg PO DAILY 06/10/20 [Last Taken 06/10/20 09:00] Exam - Exam Vital Signs: Vital Signs - Last Taken Temp 36.8 C 06/10/20 18:58 Pulse 70 06/10/20 18:58 Resp 17 06/10/20 18:58 BP 180/75 H 06/10/20 18:58 Pulse Ox 96 06/10/20 18:58 Constitutional: Present: Alert, Oriented x3, Cooperative, Well developed, Well nourished, No distress, Looks Younger than stated age Respiratory: Present: lungs clear, normal breath sounds Cardiovascular/Chest: Present: regular rate, rhythm Abdomen: Present: soft, nontender Extremity: Absent: lower extremity edema Eye contact: Present: cooperative, good eye contact Diagnostic Studies: Abnormal Lab Results 06/10/20 06/10/20 06/10/20 Range/Units 15:22 15:22 15:22 Hct 48.0 H (37.0-47.0) % Eosinophils % 5.1 H (0.0-3.0) % Basophils % 1.2 H (0.0-1.0) % Neutrophils # 6.1 H (1.3-6.0) K/mm3 PT 10.8 H (9.1-10.7) Seconds INR (Anticoag Therapy) 1.09 H (0.92-1.08) INR Est GFR (Non-Af Amer) 47 L (60-130) mL/min BUN/Creatinine Ratio 8.3 L (9.0-21.6) Random Glucose 142 H (70-110) mg/dL Stool Occult Blood 06/10/20 Range/Units 16:26 Hct (37.0-47.0) % Eosinophils % (0.0-3.0) % Basophils % (0.0-1.0) % Neutrophils # (1.3-6.0) K/mm3 PT (9.1-10.7) Seconds INR (Anticoag Therapy) (0.92-1.08) INR Est GFR (Non-Af Amer) (60-130) mL/min BUN/Creatinine Ratio (9.0-21.6) Random Glucose (70-110) mg/dL Stool Occult Blood Positive H Laboratory Results WBC 9.8 K/mm3 (4.0-10.5) 06/10/20 15:22 RBC 5.31 M/mm3 (4.2-5.4) 06/10/20 15:22 Hgb 15.7 gm/dL (12.5-16.0) 06/10/20 15:22 Hct 48.0 % (37.0-47.0) H 06/10/20 15:22 MCV 90.4 fl (78-100) 06/10/20 15:22 MCH 29.6 pg (27-31) 06/10/20 15: MCHC 32.7 g/dl (32-36) 06/10/20 15: RDW 13.2 % (11.5-14.0) 06/10/20 15:22 Plt Count 322 K/mm3 (150-450) 06/10/20 15: MPV 10.5 fl (8-12.5) 06/10/20 15:22 Immature Gran % (Auto) 0.20 % (0.001-0.429) 06/10/20 15: Immature Gran # (Auto) 0.02 K/mm3 (0.000-0.0310) 06/10/20 15: Neutrophils % 61.9 % (42-75.0) 06/10/20 15: Lymphocytes % 24.2 % (20-51) 06/10/20 15:22 Monocytes % 7.4 % (0.0-9) 06/10/20 15: Eosinophils % 5.1 % (0.0-3.0) H 06/10/20 15:22 Basophils % 1.2 % (0.0-1.0) H 06/10/20 15: Nucleated RBC % 0.0 k/mm3 (0-1) 06/10/20 15: Neutrophils # 6.1 K/mm3 (1.3-6.0) H 06/10/20 15:22 Lymphocytes # 2.37 k/mm3 (1.5-3.5) 06/10/20 15: Monocytes # 0.7 k/mm3 (0.0-1.0) 06/10/20 15: Eosinophils # 0.5 k/mm3 (0.0-0.7) 06/10/20 15: Absolute Basophils 0.1 k/mm3 (0.0-0.1) 06/10/20 15: PT 10.8 Seconds (9.1-10.7) H 06/10/20 15:22 INR (Anticoag Therapy) 1.09 INR (0.92-1.08) H 06/10/20 15:22 PTT ([place]) 29.1 Seconds (24-32) 06/10/20 15:22 Sodium 138 mmol/L (132-142) 06/10/20 15:22 Plasma Sodium 139 mmol/L (130-142) 06/10/20 15:22 Potassium 3.9 mmol/L (3.4-4.6) 06/10/20 15:22 Chloride 104 mmol/L (97-106) 06/10/20 15:22 Carbon Dioxide 25.4 mmol/L (24-32.6) 06/10/20 15:22 Anion Gap 12.5 mmol/L (6.8-13.8) 06/10/20 15:22 BUN 10 mg/dL (3-23) 06/10/20 15:22 Creatinine 1.20 mg/dL (0.4-1.4) 06/10/20 15:22 Est GFR (Non-Af Amer) 47 mL/min (60-130) L 06/10/20 15:22 BUN/Creatinine Ratio 8.3 (9.0-21.6) L 06/10/20 15:22 Random Glucose 142 mg/dL (70-110) H 06/10/20 15:22 Calcium 9.4 mg/dL (7.9-10.9) 06/10/20 15:22 Calcium Adj for Albumin 9.4 mg/dL (8.4-10.2) 06/10/20 15:22 Total Bilirubin 0.3 mg/dL (0.0-1.1) 06/10/20 15:22 AST 18 U/L (0-48) 06/10/20 15:22 ALT 30 U/L (19-67) 06/10/20 15:22 Alkaline Phosphatase 157 U/L (50-170) 06/10/20 15:22 Total Protein 7.6 gm/dL (6.2-8.2) 06/10/20 15:22 Albumin 3.6 gm/dl (3.4-5.0) 06/10/20 15:22 Stool Occult Blood Positive H 06/10/20 16:26 SARS-CoV-2 (PCR) Not detected (NotDetected) 06/10/20 17:43 Blood Type O Positive 06/10/20 15:22 Antibody Screen Positive 06/10/20 15:22 Assessment/Plan - Narrative Narrative: She is passing blood from her rectum. I strongly suspect this is due to a combination of Excedrin, aspirin, and plavix. Excedrin has aspirin in it as well. She is being given a dose of IV protonix. INR not elevated. Her admission hemoglobin is 15.7, and will recheck in the morning. If her hemoglobin decreases significantly, will consult surgery. If she does not have a significant decrease, will DC home tomorrow, and order general surgery referral. She reports being due for her screening colonoscopy. On physical exam, she is comfortable, and feels like she is at her baseline. Heart rate, respiratory rate are normal, and her BP is a bit high, in the 180's/70's. Will restart home meds for her BP. Will administer tylenol for her headache. - Assessment/Plan (1) Acute GI bleeding Problem: Acute (2) HTN (hypertension) Problem: Chronic Qualifiers: (3) Stented coronary artery Problem: Chronic (4) History of transient ischemic attack (TIA) Problem: Resolved (5) History of DE (myocardial infarction) Problem: Resolved (6) Anxiety Problem: Chronic
[2020-06-11 06:39] LABS: Hemoglobin 16.8 gm/dL (12.5-16.0); Mean Cell Volume 89.8 fl (78-100); Mean Corpuscular Hemoglobin 29.6 pg (27-31); Mean Corpuscular Hgb Conc 32.9 g/dl (32-36); Mean Platelet Volume 10.3 fl (8-12.5); Neutrophil # 7.2 K/mm3 (1.3-6.0); Neutrophil % 66.6 % (42-75.0); Platelet Count 315 K/mm3 (150-450); Red Blood Count 5.68 M/mm3 (4.2-5.4); Red Cell Distribution Width 13.3 % (11.5-14.0); White Blood Count 10.8 K/mm3 (4.0-10.5)
--- NOTE | 2020-06-11 08:32 | DS ---
(1) Acute GI bleeding Problem: Acute (2) HTN (hypertension) Problem: Chronic Qualifiers: (3) Stented coronary artery Problem: Chronic (4) History of transient ischemic attack (TIA) Problem: Resolved (5) History of VT (myocardial infarction) Problem: Resolved (6) Anxiety Problem: Chronic Date of Discharge:: 06/11/20 Hospital Course: Patient with PMHx of HTN, carotid artery stenosis on plavix and aspirin, and daily headaches presented to the ED after having some bleeding from her rectum at home. She has some mild abdominal cramping intermittently. She takes excedrin daily for her headaches. She was having some diarrhea the day prior to admission, and a small amount of blood when she wiped. The day of admission, every time she would urinate, she would pass blood. She denied SOB, constipation, urinary symptoms, or skin complaints. This has not happened bef ore. In the ED, her BP was high, otherwise vitals were normal. Hemoglobin was 15.7 in the ED. She had a couple of episodes of passing blood, and she was admitted for observation. She was given IV protonix. Overnight, she had a few episodes of passing blood. In the morning, her hemoglobin increased to 16.8. She does smoke, which would explain her high hemoglobin. Her BP improved overnight. Since her hemoglobin did not significantly decrease, she will be discharged today with protonix and a referral to general surgery. She reports being due for a screening colonoscopy. Discussed holding her aspirin and plavix until her colonoscopy, and discontinuing Excedrin. Also discussed symptoms that would necessitate returning to the ED. Procedures Performed: none Results and Findings: Lab Pending Results 06/10/20 15:22: WBC 9.8, RBC 5.31, Hgb 15.7, Hct 48.0 H, MCV 90.4, MCH 29.6, MCHC 32.7, RDW 13.2, Plt Count 322, MPV 10.5, Immature Gran % (Auto) 0.20, Immature Gran # (Auto) 0.02, Neutrophils % 61.9, Lymphocytes % 24.2, Monocytes % 7.4, Eosinophils % 5.1 H, Basophils % 1.2 H, Nucleated RBC % 0.0, Neutrophils # 6.1 H, Lymphocytes # 2.37, Monocytes # 0.7, Eosinophils # 0.5, Absolute Basophils 0.1 06/10/20 15:22: PT 10.8 H, INR (Anticoag Therapy) 1.09 H, PTT (Tomasz) 29.1 06/10/20 15:22: Sodium 138, Plasma Sodium 139, Potassium 3.9, Chloride 104, Carbon Dioxide 25.4, Anion Gap 12.5, BUN 10, Creatinine 1.20, Est GFR (Non-Af Amer) 47 L, BUN/Creatinine Ratio 8.3 L, Random Glucose 142 H, Calcium 9.4, Calcium Adj for Albumin 9.4, Total Bilirubin 0.3, AST 18, ALT 30, Alkaline Phosphatase 157, Total Protein 7.6, Albumin 3.6 06/10/20 15:22: Blood Type O Positive, Antibody Screen Positive, Antibody Identification Pending 06/10/20 16:26: Stool Occult Blood Positive H 06/10/20 17:43: SARS-CoV-2 (PCR) Not detected 06/11/20 06:29: WBC 10.8 H, RBC 5.68 H, Hgb 16.8 H, Hct 51.0 H, MCV 89.8, MCH 29.6, MCHC 32.9, RDW 13.3, Plt Count 315, MPV 10.3, Immature Gran % (Auto) 0.40, Immature Gran # (Auto) 0.04 H, Neutrophils % 66.6, Lymphocytes % 21.0, Monocytes % 6.5, Eosinophils % 4.2 H, Basophils % 1.3 H, Nucleated RBC % 0.0, Neutrophils # 7.2 H, Lymphocytes # 2.26, Monocytes # 0.7, Eosinophils # 0.5, Absolute Basophils 0.1 Discharge Location: Home Disposition: Home self-care Condition: Stable Discharge Activity: Activity as tolerated Discharge Diet: General/regular food Referrals: Sunshine Thao MD [Primary Care Provider] - One Week Sol Coffman MD [Staff Physician] - One Week Prescriptions (Any new or edited meds): Pantoprazole Sodium [Protonix] 40 mg PO DAILY #30 tablet. Transmission Status: Pending to [place], [place] Complete Home Medications List: Complete Home Medication List: Clopidogrel Bisulfate [Plavix] 75 mg PO DAILY 11/11/16 Aspirin [Aspirin EC] 81 mg PO DAILY 07/03/17 metoprolol succinate 100 mg tablet,extended release 24 hr See Rx Instructions .ROUTE .COMPLEX #90 unknown measurement unit code: not specified 01/07/20 amlodipine 10 mg tablet See Rx Instructions .ROUTE .COMPLEX #90 unspecified 03/23/20 paroxetine HCl 40 mg tablet See Rx Instructions .ROUTE .COMPLEX #90 tab 03/23/20 Atorvastatin Calcium 40 mg PO DAILY 06/10/20 Cholecalciferol (Vitamin D3) [Vitamin D3] 2,000 unit PO DAILY 06/10/20 Omeprazole 20 mg PO DAILY 06/10/20 Pantoprazole Sodium [Protonix] 40 mg PO DAILY #30 tablet. 06/11/20
[2020-06-11] MEDS ORDERED: METOPROLOL SUCCINATE 100 MG TABLET.SA PO SCH (09:00)
[2020-06-11] MEDS ORDERED: amLODIPine BESYLATE 10 MG TABLET PO SCH (09:00)
[2020-06-11 09:51] VITALS: BP 148/58
== END 2020-06-11 09:45 | disposition home or self-care (01) ==
LOC: ER 14:56 → MS 17:31 → INTOOBSV 17:31 → MS 19:00
PROVIDERS: ADMIT Family Medicine; ATTEND Family Medicine